=== PATIENT | male | born 1955 | race Caucasian/White ===

== ENCOUNTER → 2018-09-22 | Outpatient (CLI) | payer BC ==
[~2018-09-22] MED LIST: ABAC1TAB13 PO; ASPI81TA50 PO; HYDR-3164 PO; MULT-659 PO; NAPR220C4 PO; PANT20TA2 PO; [UNRECOGNIZED DRUG - CODE] PO
--- NOTE | 2018-09-22 15:15 | EKG ---
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
[2018-09-22 15:53] LABS: BASO % 1 % (0-3); EOS # 0.5 x10^3/uL (0.0-0.7); EOS % 7 % (0-3); HEMATOCRIT 44.2 % (39.0-53.0); HEMOGLOBIN 14.8 g/dL (13.0-17.5); LYMPH % 30 % (24-48); MEAN CORPUSCULAR HEMOGLOBIN 31 pg (25-35); MEAN CORPUSCULAR HGB CONC 34 g/dL (31-37); MEAN CORPUSCULAR VOLUME 93 fL (79-100); MONO # 0.6 x10^3/uL (0.0-1.1); MONO % 8 % (0-9); NEUT # 3.6 x10^3uL (1.8-7.7); NEUT % 54 % (31-73); PLATELET COUNT 191 x10^3/uL (140-400); RED BLOOD COUNT 4.76 x10^6/uL (4.30-5.70); RED CELL DISTRIBUTION WIDTH 14.3 % (11.5-14.5); WHITE BLOOD COUNT 6.7 x10^3/uL (4.0-11.0)
[2018-09-22 16:34] LABS: CALCIUM 9.3 mg/dL (8.5-10.1); CREATININE 1.3 mg/dL (0.7-1.3); GFR 56.1
--- NOTE | 2018-09-27 10:59 | NUR ---
FAXED PRE - OP LABS,EKG'S PRELIMINARY REPORT TO 'S OFFICE AT 1037 AND RECEIVED TRANSMITTAL CONFIRMATION. FAXED EKG'S FINAL REPORT TO 'S OFFICE 09/24/2018 AT 1825 AND RECEIVED TRANSMITTAL CONFIRMATION. EKG'S FINAL REPORT WAS REVIEWED BY ERIC BRANCH RN,ANESTHESIA TEAM 09/27/2018 AT 1015 AND WAS OKAY
== END | disposition home or self-care (01) ==
LOC: SURGPAT 14:06
PROVIDERS: ATTEND Surgery
DX: Z01.818 Encounter for other preprocedural examination (principal); K43.9 Ventral hernia without obstruction or gangrene; Z88.2 Allergy status to sulfonamides
CPT/HCPCS: 36415; 80048; 85025; 93005

== ENCOUNTER → 2018-09-28 | Day surgery (SDC) | payer BC ==
[~2018-09-28] VITALS: Ht 177.8 cm; Wt 86.0 kg
[~2018-09-28] MED LIST changes: +BUPIVACAINE MPF 0.25% 30 ML VIAL. ONE; +BUPIVACAINE-EPI 0.25%-1:200000 MPF 30 ML VIAL. ONE; +DEXAMETHASONE SOD PHOS 20 MG/5 ML VIAL. ONE; +FAMOTIDINE 20 MG/2 ML VIAL ONE; +GLYCOPYRROLATE 1 MG/5 ML VIAL. ONE; +HYDROcodone/APAP 5/325MG 1 TAB TABLET PO ONE; +HYDROmorphone 2 MG/ML VIAL IV PRN; +IV RINGERS,LACTATED 1000ML 1,000 ML IV SCH; +LIDOCAINE 1% PF 2 ML VIAL. ID PRN; +LIDOCAINE 2% PF 5 ML VIAL. ONE; +MIDAZOLAM HCL/PF 2 MG/2 ML VIAL. ONE; +MORPHINE SULFATE 2 MG/ML VIAL. IV PRN; +NEOSTIGMINE METHYLSULFATE 5 MG/5 ML SYRINGE. ONE; +ONDANSETRON PF 4 MG/2 ML VIAL. IV PRN; +ONDANSETRON PF 4 MG/2 ML VIAL. ONE; +PROCHLORPERAZINE 10 MG/2 ML VIAL. IV PRN; +PROPOFOL 20 ML IV ONE; +ROCURONIUM 50 MG/5 ML VIAL. ONE; +SEVOFLURANE 31 TO 60 MINUTES. IH ONE; +ceFAZolin 2GM PREMIX 2 GM/50 ML BAG IV ONE; +ePHEDrine PF IN SALINE 50 MG/10 ML SYRINGE. IV ONE; +fentaNYL PF VIAL 100 MCG/2 ML VIAL IV PRN; +fentaNYL PF VIAL 100 MCG/2 ML VIAL ONE
--- NOTE | 2018-09-28 12:18 | PDOC4 ---
Operative Note Operative Note Date: 09/28/2018 Preoperative diagnosis: Incarcerated epigastric ventral hernia Postoperative diagnosis: Same Procedure: Robotic-assisted laparoscopic ventral hernia repair with mesh Surgeon: Pillo Specimen: None Dictation: Patient is a 63-year-old and was complained of a painful bulge in his epigastric area of his abdomen the procedure of robotic-assisted laparoscopic ventral hernia repair with mesh was explained to the patient in detail all risk benefits were also discussed including bleeding infection injury to intra- abdominal contents possibly necessitating further open operations alternatives to this procedure also discussed with the patient who seemed to understand and gave both verbal and written consent to have the procedure performed. Patient was taken to the operating room placed the supine position general anesthesia was initiated once patient was sleep and intubated his abdomen was prepped and draped usual sterile fashion using ChloraPrep. An area just below the umbilicus was injected with quarter percent Marcaine with epinephrine incision was delfino blade scalpel and a Veress needle was placed within the abdomen creating pneumoperitoneum this point a 5 mm Visiport was placed under direct visualization and the abdomen was inspected was a moderate sized epigastric hernia incarcerated with omentum and a adhesion to the abdominal wall from his previous gastrostomy tube port site. 8mm da Scotty ports placed one in the left mid abdomen one in the left upper abdomen all under direct visualization the 5 mm Visiport was changed out for 8mm da Scotty port that eventually robot was then brought in and docked all port sites using grasper and injure sutures scissors surgeon went to the robotic console with sharp dissection took down the adhesion to the stomach. The incarcerated omentum and fat within the epigastric hernia was reduced a hernia defect was then closed with a running 20V LOC nonabsorbable suture. Ventral light ST mesh was then placed over the hernia defect this was sewn into place with 20V LOC absorbable suture. The intervention robot was undocked all ports removed the port sites were all closed for septic and a Monocryl Mastisol Steri-Strips and island dressings were applied. Patient was awakened and asked bated operating room taken to recovery in stable condition all sponge instrument needle counts listed as correct estimated blood loss 5 mL RAFI JAMES MD Sep 28, 2018 12:18
--- NOTE | 2018-09-28 12:20 | DISCH ---
DISCHARGE INSTRUCTIONS Condition on Discharge Condition on Discharge: Stable Activity After Discharge Activity Instructions for Disc: Avoid exertion Other activity instructions: no lifting more than 20 pounds for 2 weeks Diet after Discharge Diet after Discharge: Regular Wound Incision Care Other wound/incision instructi: a shower in 24 hours Contacting the DRBrando after DC Call your doctor for: If your condition worsens Follow-Up Follow up with: Dr. James in 3 weeks RAFI JAMES MD Sep 28, 2018 12:20
[2018-09-28 13:46] VITALS: BP 117/66
== END ==
LOC: SURG 09:26 → EDUNIT# 11:00
PROVIDERS: ATTEND Surgery
DX: K43.6 Other and unspecified ventral hernia with obstruction, without gangrene (principal); B20 Human immunodeficiency virus [HIV] disease; Z87.891 Personal history of nicotine dependence; Z79.82 Long term (current) use of aspirin; Z79.899 Other long term (current) drug therapy; Z88.2 Allergy status to sulfonamides; Z93.1 Gastrostomy status; Z98.890 Other specified postprocedural states
CPT/HCPCS: 49653; A7015; C1781; J0171; J0696; J1100; J2001; J2250; J2405; J2704; J2710; J3010; J3490; J7120; S2900

== ENCOUNTER 2019-05-09 19:00 | Emergency (ER) | payer BC ==
[~2019-05-09] VITALS: Ht 180.3 cm; Wt 90.0 kg
[~2019-05-09 19:00] MED LIST changes: -BUPIVACAINE MPF 0.25% 30 ML VIAL. ONE; -BUPIVACAINE-EPI 0.25%-1:200000 MPF 30 ML VIAL. ONE; -DEXAMETHASONE SOD PHOS 20 MG/5 ML VIAL. ONE; -FAMOTIDINE 20 MG/2 ML VIAL ONE; -GLYCOPYRROLATE 1 MG/5 ML VIAL. ONE; -HYDROcodone/APAP 5/325MG 1 TAB TABLET PO ONE; -HYDROmorphone 2 MG/ML VIAL IV PRN; -IV RINGERS,LACTATED 1000ML 1,000 ML IV SCH; -LIDOCAINE 1% PF 2 ML VIAL. ID PRN; -LIDOCAINE 2% PF 5 ML VIAL. ONE; -MIDAZOLAM HCL/PF 2 MG/2 ML VIAL. ONE; -MORPHINE SULFATE 2 MG/ML VIAL. IV PRN; -NEOSTIGMINE METHYLSULFATE 5 MG/5 ML SYRINGE. ONE; -ONDANSETRON PF 4 MG/2 ML VIAL. IV PRN; -ONDANSETRON PF 4 MG/2 ML VIAL. ONE; -PROCHLORPERAZINE 10 MG/2 ML VIAL. IV PRN; -PROPOFOL 20 ML IV ONE; -ROCURONIUM 50 MG/5 ML VIAL. ONE; -SEVOFLURANE 31 TO 60 MINUTES. IH ONE; -ceFAZolin 2GM PREMIX 2 GM/50 ML BAG IV ONE; -ePHEDrine PF IN SALINE 50 MG/10 ML SYRINGE. IV ONE; -fentaNYL PF VIAL 100 MCG/2 ML VIAL IV PRN; -fentaNYL PF VIAL 100 MCG/2 ML VIAL ONE
[2019-05-09] MEDS ORDERED: HYDROcodone/APAP 10/325 1 TAB TABLET PO ONE (19:45)
--- NOTE | 2019-05-09 19:47 | PHYS DOC ---
Past Medical History Past Medical History: HIV Past Surgical History: Appendectomy Additional Past Surgical Histo: hernia, brain, lung, Alcohol Use: Occasionally Adult General Chief Complaint Chief Complaint: SYNCOPE HPI HPI Patient is a 64 year old IV positive male who presents with accidental fall from standing. Patient states he is crouched over his bathtub clipping his toenails and then had a syncopal episode upon walking down the hallway just prior to arrival. Patient states he felt dizzy or lightheaded prior to episode denies chest pain palpitations shortness of breath. Patient did hit his head with a superficial abrasion noted on his frontal scalp and printed abrasion noted in his right chest wall. Patient not on anticoagulation therapy denies cardiac history including arrhythmia. No prior syncopal episodes. Reports mild headache and chest wall pain. No other acute symptoms or complaints. Review of Systems Review of Systems ROS as per HPI All other systems were reviewed and found to be within normal limits, except as documented in this note. Current Medications Current Medications Current Medications Medications (Trade) Dose Ordered Sig/Vu Start Time Stop Time Status Last Admin Dose Admin Acetaminophen/ Hydrocodone Bitart (Lortab 10/325) 1 tab 1X ONCE 05/09/19 19:45 05/09/19 19:46 DC 05/09/19 20:39 1 TAB Allergies Allergies Allergies Coded Allergies Type Severity Reaction Last Updated Verified Sulfa (Sulfonamide Antibiotics) Allergy Severe Anaphylaxis 09/28/18 Yes Physical Exam Physical Exam Constitutional: Well developed, well nourished, no acute distress, non-toxic appearance. [] HENT: Normocephalic, superficial abrasions, frontal scalp, bilateral external ears normal, oropharynx moist, no oral exudates, nose normal. [] Eyes: PERRLA, EOMI, conjunctiva normal. [] Neck: Normal range of motion, no tenderness. [] Cardiovascular:Heart rate regular rhythm, no murmur [] Lungs & Thorax: Bilateral breath sounds clear to auscultation, right chest wall pain/tenderness to palpation, linear imprint abrasion over breast, no chest wall crepitance or subcutaneous emphysema [] Abdomen: Bowel sounds normal, soft, no tenderness. [] Skin: Warm, dry. [] Back: No tenderness. [] Extremities: No tenderness, no edema. [] Neurologic: Alert and oriented X 3, CN 2-12, grossly intact, normal motor function, normal sensory function, no focal deficits noted. [] Psychologic: Affect normal, judgement normal, mood normal. [] Current Patient Data Vital Signs Vital Signs Date Time Temp Pulse Resp B/P (MAP) Pulse Ox O2 Delivery O2 Flow Rate FiO2 05/09/19 21:34 80 20 127/70 (89) 96 Room Air 05/09/19 19:11 98.4 98.4 Lab Values Laboratory Tests Test 05/09/19 20:30 White Blood Count 14.2 x10^3/uL (4.0-11.0) H Red Blood Count 5.08 x10^6/uL (4.30-5.70) Hemoglobin 15.3 g/dL (13.0-17.5) Hematocrit 45.5 % (39.0-53.0) Mean Corpuscular Volume 90 fL (79-100) Mean Corpuscular Hemoglobin 30 pg (25-35) Mean Corpuscular Hemoglobin Concent 34 g/dL (31-37) Red Cell Distribution Width 13.8 % (11.5-14.5) Platelet Count 201 x10^3/uL (140-400) Neutrophils (%) (Auto) 84 % (31-73) H Lymphocytes (%) (Auto) 7 % (24-48) L Monocytes (%) (Auto) 6 % (0-9) Eosinophils (%) (Auto) 2 % (0-3) Basophils (%) (Auto) 1 % (0-3) Neutrophils # (Auto) 11.9 x10^3/uL (1.8-7.7) H Lymphocytes # (Auto) 1.0 x10^3/uL (1.0-4.8) Monocytes # (Auto) 0.9 x10^3/uL (0.0-1.1) Eosinophils # (Auto) 0.3 x10^3/uL (0.0-0.7) Basophils # (Auto) 0.1 x10^3/uL (0.0-0.2) Sodium Level 139 mmol/L (136-145) Potassium Level 4.2 mmol/L (3.5-5.1) Chloride Level 103 mmol/L (98-107) Carbon Dioxide Level 23 mmol/L (21-32) Anion Gap 13 (6-14) Blood Urea Nitrogen 23 mg/dL (8-26) Creatinine 1.3 mg/dL (0.7-1.3) Estimated GFR (Cockcroft-Gault) 55.9 BUN/Creatinine Ratio 18 (6-20) Glucose Level 147 mg/dL (70-99) H Calcium Level 8.8 mg/dL (8.5-10.1) Magnesium Level 2.0 mg/dL (1.8-2.4) Total Bilirubin 0.7 mg/dL (0.2-1.0) Aspartate Amino Transferase (AST) 24 U/L (15-37) Alanine Aminotransferase (ALT) 29 U/L (16-63) Alkaline Phosphatase 117 U/L (46-116) H Total Protein 7.5 g/dL (6.4-8.2) Albumin 3.8 g/dL (3.4-5.0) Albumin/Globulin Ratio 1.0 (1.0-1.7) Laboratory Tests 05/09/19 20:30 Laboratory Tests 05/09/19 20:30 EKG EKG EKG: reviewed[] Radiology/Procedures Radiology/Procedures [Right rib series: No obvious displaced fracture or pneumothorax per radiology report.] Course & Med Decision Making Course & Med Decision Making Pertinent Labs and Imaging studies reviewed. (See chart for details) [Orthostatic syncope with chest wall contusion without pneumothorax or obvious displaced rib fracture on chest x-ray. Pain addressed. Vital signs stable. Patient ambulates with steady gait. We'll treat supportively with PCP follow-up. Return precautions reviewed. Patient verbalizes understanding and agreement discharge instructions prior to departure] Dragon Disclaimer Dragon Disclaimer This electronic medical record was generated, in whole or in part, using a voice recognition dictation system. Departure Departure Impression: Primary Impression: Contusion of rib on right side Disposition: HOME, SELF-CARE Condition: IMPROVED Referrals: JOAQUIN GONZALEZ MD (PCP) Scripts Hydrocodone Bit/Acetaminophen (HYDROCODONE-APAP 5-300) 1 Each Tablet 1 TAB PO PRN BID PRN for pain MDD 2 Tablet(s) for 15 Days, #30 TAB 0 Refills Prov: DAWOOD ABRAHAM DO 05/09/19 DAWOOD ABRAHAM DO May 09, 2019 19:47
[2019-05-09 20:38] LABS: BASO # 0.1 x10^3/uL (0.0-0.2); BASO % 1 % (0-3); EOS # 0.3 x10^3/uL (0.0-0.7); EOS % 2 % (0-3); HEMATOCRIT 45.5 % (39.0-53.0); HEMOGLOBIN 15.3 g/dL (13.0-17.5); LYMPH % 7 % (24-48); MEAN CORPUSCULAR HEMOGLOBIN 30 pg (25-35); MEAN CORPUSCULAR HGB CONC 34 g/dL (31-37); MEAN CORPUSCULAR VOLUME 90 fL (79-100); MONO # 0.9 x10^3/uL (0.0-1.1); MONO % 6 % (0-9); NEUT # 11.9 x10^3/uL (1.8-7.7); NEUT % 84 % (31-73); PLATELET COUNT 201 x10^3/uL (140-400); RED BLOOD COUNT 5.08 x10^6/uL (4.30-5.70); RED CELL DISTRIBUTION WIDTH 13.8 % (11.5-14.5); WHITE BLOOD COUNT 14.2 x10^3/uL (4.0-11.0)
[2019-05-09 20:47] LABS: CALCIUM 8.8 mg/dL (8.5-10.1); CREATININE 1.3 mg/dL (0.7-1.3); GFR 55.9; POTASSIUM 4.2 mmol/L (3.5-5.1)
[2019-05-09 20:53] LABS: ALBUMIN 3.8 g/dL (3.4-5.0); TOTAL BILIRUBIN 0.7 mg/dL (0.2-1.0); TOTAL PROTEIN 7.5 g/dL (6.4-8.2)
--- NOTE | 2019-05-09 21:28 | RAD ---
Exam: Right RIBS with PA chest INDICATION: Chest wall injury TECHNIQUE: Frontal view of the chest with frontal and oblique views of the right ribs Comparisons: None FINDINGS: The cardiomediastinal silhouette and pulmonary vessels are within normal limits. The lung and pleural spaces are clear. No displaced rib fractures. IMPRESSION: 1. No acute cardiopulmonary process. 2. No displaced rib fractures. Electronically signed by: Francia Liu MD (05/09/2019 9:25 PM) [facility]
[2019-05-09 21:34] VITALS: BP 127/70
[2019-05-09] MEDS ORDERED: HYDR-2163 PO (21:45)
--- NOTE | 2019-05-10 05:35 | EKG ---
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
== END 2019-05-09 21:55 | disposition home or self-care (01) ==
LOC: ER 19:00
DX: S20.211A Contusion of right front wall of thorax, initial encounter (principal); R55 Syncope and collapse; R42 Dizziness and giddiness; S00.01XA Abrasion of scalp, initial encounter; Z21 Asymptomatic human immunodeficiency virus [HIV] infection status; Z90.89 Acquired absence of other organs; Z98.890 Other specified postprocedural states; Z88.2 Allergy status to sulfonamides; W18.39XA Other fall on same level, initial encounter; Y93.89 Activity, other specified; Y92.89 Other specified places as the place of occurrence of the external cause; Y99.8 Other external cause status
CPT/HCPCS: 36415; 71101; 80053; 83735; 85025; 93005; 99285

== ENCOUNTER 2019-11-11 16:12 | Inpatient (IN) | payer BC ==
[~2019-11-11] VITALS: Ht 177.8 cm; Wt 77.9 kg
[~2019-11-11 16:12] MED LIST changes: +HYDR-2163 PO
[2019-11-11] MEDS ORDERED: VANCOMYCIN 2 GM in IV NORMAL SALINE 500ML BAG 500 ML IV ONE (18:00)
--- NOTE | 2019-11-11 18:43 | RAD ---
Three-view right elbow dated 11/11/2019. No comparison available. Clinical data indication: Pain and swelling FINDINGS: 3 views of right elbow show normal bony alignment. No displaced fracture. No acute osseous or articular abnormality. No fat pad elevation to suggest joint effusion. There is mild soft tissue swelling. IMPRESSION: No acute bony abnormality. Electronically signed by: Navdeep Doshi MD (11/11/2019 6:40 PM) [facility]
[2019-11-11] MEDS ORDERED: MORPHINE SULFATE 4 MG/ML VIAL. IV PRN (19:15)
[2019-11-11] MEDS ORDERED: ONDANSETRON PF 4 MG/2 ML VIAL. IV PRN (19:15)
--- NOTE | 2019-11-11 19:19 | PHYS DOC ---
Past Medical History Past Medical History: HIV Additional Past Medical Histor: Toxoplasmosis Past Surgical History: Appendectomy, Other Additional Past Surgical Histo: hernia, brain, lung, Smoking Status: Former Smoker Alcohol Use: Occasionally General Adult EDM: Chief Complaint: ELBOW PROBLEM HPI: HPI: Patient is a 64 year old male, accompanied by a friend, who presents to the emergency department with complaints of right elbow redness, warmth, and swelling. Patient reports that he initially injured his elbow a week ago when he fell out of a chair. He states that there is a small abrasion to his elbow but denies any purulent drainage or warmth. He reports that 2 days ago he noticed that his elbow became red, more swollen, and tender. He denies any bleeding or drainage from the scabbed abrasion site. He reports that last night he had a fever of 101 degrees. He denies any cough, shortness of breath, numbness, tingling, or weakness. He denies any abdominal pain, nausea, vomiting, diarrhea, headaches, or sore throat. Patient states that he had a colonoscopy this morning and that he had a negative COVID test this week. Currently rates the pain 6 out of 10 on the pain scale, he denies any alleviating factors, or radiation of the pain. He states that the pain increases with palpation and movement. Review of Systems: Review of Systems: Constitutional: See HPI Eyes: Denies change in visual acuity. [] HENT: Denies nasal congestion or sore throat. [] Respiratory: Denies cough or shortness of breath. [] Cardiovascular: Denies chest pain or edema. [] GI: Denies abdominal pain, nausea, vomiting, or diarrhea. [] Musculoskeletal: See HPI Integument: Denies rash. [] Neurologic: Denies headache, focal weakness or sensory changes. [] Lymphatic: Denies swollen glands. [] Psychiatric: Denies depression or anxiety. [] Heart Score: Risk Factors: Risk Factors: DM, Current or recent (<one month) smoker, HTN, HLP, family history of CAD, obesity. Risk Scores: Score 0 - 3: 2.5% MACE over next 6 weeks - Discharge Home Score 4 - 6: 20.3% MACE over next 6 weeks - Admit for Clinical Observation Score 7 - 10: 72.7% MACE over next 6 weeks - Early Invasive Strategies Current Medications: Current Medications Medications (Trade) Dose Ordered Sig/Vu Start Time Stop Time Status Last Admin Dose Admin Vancomycin HCl (Vanco Per Pharmacy) 1 each PRN DAILY PRN 11/11/19 18:00 Vancomycin HCl 2 gm/Sodium Chloride 500 ml @ 250 mls/hr 1X ONCE 11/11/19 18:00 11/11/19 19:59 Allergies: Allergies: Allergies Coded Allergies Type Severity Reaction Last Updated Verified Sulfa (Sulfonamide Antibiotics) Allergy Severe Anaphylaxis 09/28/18 Yes Physical Exam: PE: Constitutional: Well developed, well nourished, no acute distress, non-toxic appearance. [] HENT: Normocephalic, atraumatic, bilateral external ears normal, nose normal. [] Eyes: PERRLA, EOMI, conjunctiva normal, no discharge. [] Neck: Normal range of motion, no stridor. [] Cardiovascular:Heart rate regular rhythm Lungs & Thorax: Respirations even and unlabored, no retractions, no respiratory distress Skin: Warm, dry; erythema, 1+ swelling noted to lateral aspect of right elbow, scabbed area of the right elbow noted without any drainage or bleeding. Extremities: Right elbow: Lateral tenderness to palpation with 2+ lateral edema, warmth, and erythema, no cyanosis, ROM intact Neurologic: Alert and oriented X 3, no focal deficits noted. [] Psychologic: Affect normal, judgement normal, mood normal. [] Current Patient Data: Vital Signs: Vital Signs Date Time Temp Pulse Resp B/P (MAP) Pulse Ox O2 Delivery O2 Flow Rate FiO2 11/11/19 17:05 98.5 90 20 121/81 (94) 98 Room Air 98.5 EKG: EKG: [] Radiology/Procedures: Radiology/Procedures: PROCEDURE: ELBOW RIGHT 3V Three-view right elbow dated 11/11/2019. No comparison available. Clinical data indication: Pain and swelling FINDINGS: 3 views of right elbow show normal bony alignment. No displaced fracture. No acute osseous or articular abnormality. No fat pad elevation to suggest joint effusion. There is mild soft tissue swelling. IMPRESSION: No acute bony abnormality. [] Course & Med Decision Making: Course & Med Decision Making Pertinent Labs and Imaging studies reviewed. (See chart for details) 64-year-old male presents to the emergency department with complaints of right elbow swelling, erythema, and pain Work-up includes labs and x-ray. X-ray reveals no acute abnormality. CBC revealed a white blood cell count of 12.2, no bandemia; CMP revealed a total bilirubin of 1.3, alk phos of 129, and C-reactive protein of 140 otherwise unremarkable, patient's lactic acid was 1.3; UA is unremarkable; patient's COVID swab is negative [id number]-spoke with Dr. Mcleod and advised of need for consult for possible septic joint, right elbow cellulitis, versus bursitis. 1911- Spoke with Dr. Bauer who is the admitting physician, and care was assumed following discussion of patient. Will admit patient for right elbow cellulitis, right elbow bursitis. Advised that blood cultures x2 have been drawn, labs are pending, x-ray of right elbow was negative. Advised that I had already spoke with Dr. Mcleod about the patient. Will put in for orthopedic consult. Patient's vital signs stable. Patient remains afebrile, appears nontoxic, respirations even and unlabored. Patient will be admitted to the med/surg floor. Patient's case and plan of care also discussed with Dr. Dunn [] Sakina Disclaimer: Sakina Disclaimer: This electronic medical record was generated, in whole or in part, using a voice recognition dictation system. Departure Departure Impression: Primary Impression: Cellulitis of right elbow Additional Impression: Bursitis of right elbow Qualified Codes: M70.21 - Olecranon bursitis, right elbow Disposition: ADMITTED INPATIENT Admitting Physician: SAMANTHA (caleb) Condition: STABLE Referrals: JOAQUIN GONZALEZ MD (PCP) Justicifation of Admission Dx: Justifications for Admission: Justification of Admission Dx: Yes Cellulitis: Cellulitis AILYN FOWLER IMMIGRATION SPECIALIST Nov 11, 2019 19:19
--- NOTE | 2019-11-11 19:29 | PDOC2 ---
CONSULT Date of Consult Date of Consult DATE: 11/11/19 TIME: 19:24 Reason for Consult Reason for Consult: Right elbow pain and swelling and redness Identification/Chief Complaint Chief Complaint Right elbow swelling redness and pain, fever. Source Source: Chart review, Patient History of Present Illness Reason for Visit: Mr. 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 A few days ago the elbow swelled, then got more red and more painful, and last night he ran a fever. Increased pain if he moves the elbow too much. He has had several other medical issues recently, and he had a colonoscopy katrina ier today. He is getting treatment for Murillo's disease, skin cancer. He was diagnosed with HIV in 1986 and is on treatment for that. He had a COVID test yesterday for preparation for the colonoscopy today and he was COVID negative. Past Medical History Past Medical History HIV positive, diagnosed in 1986. Murillo's disease skin cancer. 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 1993 Past Surgical History: Appendectomy Family History Family History: Cancer, Coronary Artery Disease Social History Social History He does not smoke but did so remotely. He lives with his . 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 Quit Lives: with Family Current Problem List Problem List Problems Medical Problems: (1) Bursitis of right elbow Status: Acute (2) Cellulitis of right elbow Status: Acute Current Medications Current Medications Current Medications Vancomycin HCl (Vanco Per Pharmacy) 1 each PRN DAILY PRN MC SEE COMMENTS; Start 11/11/19 at 18:00 Vancomycin HCl 2 gm/Sodium Chloride 500 ml @ 250 mls/hr 1X ONCE IV ; Start 11/11/19 at 18:00; Stop 11/11/19 at 19:59 Ondansetron HCl (Zofran) 4 mg PRN Q8HRS PRN IV NAUSEA/VOMITING; Start 11/11/19 at 19:15; Stop 11/12/19 at 19:14 Morphine Sulfate (Morphine Sulfate) 4 mg PRN Q2HR PRN IV PAIN; Start 11/11/19 at 19:15; Stop 11/12/19 at 19:14 Active Scripts Active Hydrocodone-Apap 5-300 (Hydrocodone Bit/Acetaminophen) 1 Each Tablet 1 Tab PO PRN BID PRN MDD 2 Tablet(s) 15 Days Reported [place] 5-325 Tablet (Acetaminophen/Hydrocodone Bitart) 1 Each Tablet 1-2 Tab PO Q4HRS Atovaquone 750 Mg/5 Ml Oral.susp 750 Mg PO DAILY Centrum Men's Tablet (Multivits,Ca,Min/Iron/FA/Lycop) 1 Each Tablet 1 Tab PO DAILY Aleve (Naproxen Sodium) 220 Mg Capsule 220 Mg PO BID PRN Aspir-Low (Aspirin) 81 Mg Tablet.dr 1 Tab PO DAILY Protonix (Pantoprazole Sodium) 20 Mg Tablet.dr 40 Mg PO DAILY Triumeq Tablet (Abacavir/Dolutegravir/Lamivudi) 1 Each Tablet 1 Tab PO DAILY Allergies Allergies: Coded Allergies: Sulfa (Sulfonamide Antibiotics) (Verified Allergy, Severe, Anaphylaxis, 09/28/18) ROS Review of System Review of systems was negative other than as mentioned above the recent colonoscopy, and the Murillo's disease. He denied headaches, chest pain, shortness of breath, hematuria, hemoptysis, cough, blood in his stools, nausea, vomiting, diarrhea, constipation, seizures, or other issues. His regular medical doctor is Shy Reyes. Physical Exam General: Alert, Cooperative HEENT: Other (possible left eyelid droop. Atraumatic.) Lungs: Normal air movement Heart: Regular rate Abdomen: Soft Extremities: Other (The gross alignment of the right elbow is normal except for posterior bursal fluid filled sac. Elbow range of motion is 10 to 90 degrees. Elbow strength is normal. The bursa is prominent. The bursa is erythematous, warm, tender and fluctuant. There are some minor abrasions but the skin is otherwise intact. There is no drainage. Skin, pulses and sensation are otherwise normal around the elbow) Skin: Other (erythema elbow with small abrasions.) Neuro: Normal speech, Sensation intact Psych/Mental Status: Mood NL Vitals VITALS Vital Signs Date Time Temp Pulse Resp B/P (MAP) Pulse Ox O2 Delivery O2 Flow Rate FiO2 11/11/19 17:05 98.5 90 20 121/81 (94) 98 Room Air 98.5 Images Images Report reviewed images independently reviewed. There is slight swelling radiographically, it is much more visible clinically. [facility] [address] [place] [address] IMAGING REPORT Signed PATIENT: CHACORTA MCCLURE ACCOUNT: [id number] : 1955 LOCATION: ER AGE: 64 SEX: M EXAM STATUS: PRE ER ORD. PHYSICIAN: AILYN FOWLER APRN REASON: R ELBOW PAIN AND SWELLING PROCEDURE: ELBOW RIGHT 3V Three-view right elbow dated 11/11/2019. No comparison available. Clinical data indication: Pain and swelling FINDINGS: 3 views of right elbow show normal bony alignment. No displaced fracture. No acute osseous or articular abnormality. No fat pad elevation to suggest joint effusion. There is mild soft tissue swelling. IMPRESSION: No acute bony abnormality. Electronically signed by: Navdeep Doshi MD (11/11/2019 6:40 PM) [facility] DICTATED and SIGNED BY: NAVDEEP DOSHI MD DATE: 11/11/19 1840 Assessment/Plan Assessment/Plan I spoke to him about the risks benefits and alternatives of elbow incision with olecranon bursectomy.. We discussed the risks of scarring, ongoing infection, nerve injury, need for further surgeries or other potential surgical or anesthetic complications. I recommended surgery tomorrow morning. He agrees with that plan for surgery tomorrow. All of his questions about surgery were answered. DELILAH REECE MD Nov 11, 2019 19:29
[2019-11-11 19:43] LABS: BASO # 0.1 x10^3/uL (0.0-0.2); BASO % 1 % (0-3); EOS # 0.8 x10^3/uL (0.0-0.7); EOS % 6 % (0-3); HEMATOCRIT 46.7 % (39.0-53.0); HEMOGLOBIN 15.6 g/dL (13.0-17.5); LYMPH # 2.7 x10^3/uL (1.0-4.8); LYMPH % 22 % (24-48); MEAN CORPUSCULAR HEMOGLOBIN 30 pg (25-35); MEAN CORPUSCULAR HGB CONC 33 g/dL (31-37); MEAN CORPUSCULAR VOLUME 91 fL (79-100); MONO # 1.2 x10^3/uL (0.0-1.1); MONO % 10 % (0-9); NEUT # 7.5 x10^3/uL (1.8-7.7); NEUT % 62 % (31-73); PLATELET COUNT 203 x10^3/uL (140-400); RED BLOOD COUNT 5.14 x10^6/uL (4.30-5.70); RED CELL DISTRIBUTION WIDTH 13.8 % (11.5-14.5); WHITE BLOOD COUNT 12.2 x10^3/uL (4.0-11.0)
[2019-11-11 19:53] LABS: CALCIUM 9.1 mg/dL (8.5-10.1); CREATININE 1.3 mg/dL (0.7-1.3); GFR 55.9
[2019-11-11 19:59] LABS: ALBUMIN 3.9 g/dL (3.4-5.0); TOTAL BILIRUBIN 1.3 mg/dL (0.2-1.0); TOTAL PROTEIN 7.7 g/dL (6.4-8.2)
[2019-11-11] MEDS: VANCOMYCIN PER PHARMACY MC PRN (20:25)
--- NOTE | 2019-11-11 20:40 | NUR ---
Pharmacy Vancomycin Dosing Note S:Consulted to monitor and dose vancomycin started 11/11/19. O:CHACORTA CASH is a 64 year old M with Cellulitis . Height: 5 feet, 10 inches Weight: 77.9 kg [place] Body Weight: 73.00 Adjusted Body Weight: 74.96 Dosing Weight: Actual Other Antibiotics: LABS: Last BUN: Last Creatinine: 1.3 Creatinine Clearance: 65 mL/min Last WBC: 12.2 Last Procalcitonin: Tmax (past 24 hours): 98.5 Microbiology: I/O: Drug Levels: Last level: on at Last dose given 11/11/19 at 1948 Vancomycin Dosing: Loading Dose: 2000 mg x1 Dosing Weight: Actual Target Trough: 10-20 A: Based on: WEIGHT AND RENAL FUNCTION, 2GM VANCOMYCIN BOLUS GIVEN, P: 1. Begin Vancomycin 1000 mg IV q12h 2. Follow up Trough level on 11/13/19 at 0730 3. Pharmacy will continue to monitor, follow and adjust therapy as needed. ALINE RODRIGUEZ RPH, 11/11/19 539
[2019-11-11 21:58] VITALS: BP 117/71
--- NOTE | 2019-11-11 22:00 | NUR ---
Patient admitted from ER to room 408 per wheelchair. Admitting diagnosis: Right elbow cellulitis and bursitis. Patient states that 10 days ago, he fell and hit his elbow on a metal cabinet. He stated he cleaned the area and applied antibiotic ointment and that the area scabbed over. 2 days ago his elbow area became reddened, swollen and painful. Patient schedule for surgery in the morning per Dr. Mcleod. Patient is alert and oriented X4. Patient lives at home with his . Patient is allergic to Sulfa. Patient is in no acute distress at this time. Will continue to monitor
[2019-11-11 23:48] LABS: BILIRUBIN,URINE SMALL (NEG); CLARITY,URINE CLEAR; COLOR,URINE AMBER; NITRITE,URINE NEGATIVE (NEG); PH,URINE 5.5 (<5.0-8.0); PROTEIN,URINE NEGATIVE (NEG-TRACE); UROBILINOGEN,URINE 0.2 mg/dL (0.2 mg/dL)
[2019-11-12] VITALS (12 sets, daily range): BP systolic 94–142; BP diastolic 65–80
[2019-11-12 00:01] LABS: BACTERIA,URINE FEW /HPF (0-FEW); SQUAMOUS EPITHELIAL CELL,UR FEW /LPF
[2019-11-12] MEDS ORDERED: BUPIVACAINE-EPI 0.25%-1:200000 MPF 30 ML VIAL. ONE (07:32)
--- NOTE | 2019-11-12 07:35 | PDOC1 ---
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 A few days ago the elbow swelled, then got more red and more painful, and last night he ran a fever. Increased pain if he moves the elbow too much. He has had several other medical issues recently, and he had a colonoscopy 11/11/2019. He is getting treatment for Murillo's disease, skin cancer. He was diagnosed with HIV in 1986 and is on treatment for that. He had a COVID test yesterday for preparation for the colonoscopy and he was COVID negative. XR reviewed with no right elbow fracture. To OR today. 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) Past Surgical History Past Surgical History: Appendectomy Family History Family History: Cancer, Coronary Artery Disease Social History Smoke: No ALCOHOL: none Drugs: None Current Problem List Problem List Problems Medical Problems: (1) Bursitis of right elbow Status: Acute (2) Cellulitis of right elbow Status: Acute Current Medications Current Medications Current Medications Vancomycin HCl (Vanco Per Pharmacy) 1 each PRN DAILY PRN MC SEE COMMENTS Last administered on 11/11/19at 20:25; Start 11/11/19 at 18:00 Vancomycin HCl 2 gm/Sodium Chloride 500 ml @ 250 mls/hr 1X ONCE IV Last administered on 11/11/19at 19:48; Start 11/11/19 at 18:00; Stop 11/11/19 at 19:59; Status DC Ondansetron HCl (Zofran) 4 mg PRN Q8HRS PRN IV NAUSEA/VOMITING; Start 11/11/19 at 19:15; Stop 11/12/19 at 19:14 Morphine Sulfate (Morphine Sulfate) 4 mg PRN Q2HR PRN IV PAIN; Start 11/11/19 at 19:15; Stop 11/12/19 at 19:14 Vancomycin HCl 1 gm/Sodium Chloride 250 ml @ 250 mls/hr Q12H IV ; Start 11/12/19 at 08:00 Vancomycin HCl (Vancomycin Trough Level) 1 each 1X ONCE MC ; Start 11/13/19 at 07:30; Stop 11/13/19 at 07:31 Active Scripts Active Hydrocodone-Apap 5-300 (Hydrocodone Bit/Acetaminophen) 1 Each Tablet 1 Tab PO PRN BID PRN MDD 2 Tablet(s) 15 Days Reported Graham 5-325 Tablet (Acetaminophen/Hydrocodone Bitart) 1 Each Tablet 1-2 Tab PO Q4HRS Atovaquone 750 Mg/5 Ml Oral.susp 750 Mg PO DAILY Centrum Men's Tablet (Multivits,Ca,Min/Iron/FA/Lycop) 1 Each Tablet 1 Tab PO DAILY Aleve (Naproxen Sodium) 220 Mg Capsule 220 Mg PO BID PRN Aspir-Low (Aspirin) 81 Mg Tablet.dr 1 Tab PO DAILY Protonix (Pantoprazole Sodium) 20 Mg Tablet.dr 40 Mg PO DAILY Triumeq Tablet (Abacavir/Dolutegravir/Lamivudi) 1 Each Tablet 1 Tab PO DAILY Allergies Allergies: Coded Allergies: Sulfa (Sulfonamide Antibiotics) (Verified Allergy, Severe, Anaphylaxis, 11/12/19) ROS General: No: Chills, Night Sweats, Fatigue, Malaise, Appetite, Other PSYCHOLOGICAL ROS: No: Anxiety, Behavioral Disorder, Concentration difficultie, Decreased libido, Depression, Disorientation, Hallucinations, Hostility, Irritablity, Memory difficulties, Mood Swings, Obsessive thoughts, Physical abuse, Sexual abuse, Sleep disturbances, Suicidal ideation, Other Eyes: No Blurry vision, No Decreased vision, No Double vision, No Dry eyes, No Excessive tearing, No Eye Pain, No Itchy Eyes, No Loss of vision, No Photophobia, No Scotomata, No Uses contacts, No Uses glasses, No Other HEENT: No: Heacaches, Visual Changes, Hearing change, Nasal congestion, Nasal discharge, Oral lesions, Sinus pain, Sore Throat, Epistaxis, Sneezing, Snoring, Tinnitus, Vertigo, Vocal changes, Other ALLERGY AND IMMUNOLOGY: No: Hives, Insect Bite Sensitivity, Itchy/Watery Eyes, Nasal Congestion, Post Nasal Drip, Seasonal Allergies, Other Hematological and Lymphatic: No: Bleeding Problems, Blood Clots, Blood Transfusions, Brusing, Night Sweats, Pallor, Swollen Lymph Nodes, Other ENDOCRINE: No: Breast Changes, Galactorrhea, Hair Pattern Changes, Hot Flashes, Malaise/lethargy, Mood Swings, Palpitations, Polydipsia/polyuria, Skin Changes, Temperature Intolerance, Unexpected Weight Changes, Other Breast: No New/Changing Breast Lumps, No Nipple changes, No Nipple discharge, No Other Respiratory: No: Cough, Hemoptysis, Orthopnea, Pleuritic Pain, Shortness of breath, SOB with excertion, Sputum Changes, Stridor, Tachypnea, Wheezing, Other Cardiovascular: No Chest Pain, No Palpitations, No Orthopnea, No Paroxysmal Noc. Dyspnea, No Edema, No Lt Headedness, No Other Gastrointestinal: No Nausea, No Vomiting, No Abdominal Pain, No Diarrhea, No Constipation, No Melena, No Hematochezia, No Other Genitourinary: No Dysuria, No Frequency, No Incontinence, No Hematuria, No Retention, No Discharge, No Urgency, No Pain, No Flank Pain, No Other, No , No , No , No , No , No , No Musculoskeletal: No Gait Disturbance, No Joint Pain, No Joint Stiffness, No Joint Swelling, No Muscle Pain, No Muscular Weakness, No Pain In:, No Swelling In:, No Other Neurological: No Behavorial Changes, No Bowel/Bladder ControlChng, No Confusion, No Dizziness, No Gait Disturbance, No Headaches, No Impaired Coord/balance, No Memory Loss, No Numbness/Tingling, No Seizures, No Speech Problems, No Tremors, No Visual Changes, No Weakness, No Other Skin: No Dry Skin, No Eczema, No Hair Changes, No Lumps, No Mole Changes, No Mottling, No Nail Changes, No Pruritus, No Rash, No Skin Lesion Changes, No Other, No Acne Physical Exam General: Alert, Oriented X3, Cooperative, No acute distress HEENT: Atraumatic, PERRLA, EOMI, Mucous membr. moist/pink Lungs: Clear to auscultation, Normal air movement Heart: S1S2, RRR, no thrills, no rubs, no gallops, no murmurs Abdomen: Normal bowel sounds, Soft, No tenderness, No hepatosplenomegaly, No masses Rectal Exam: not examined Extremities: No clubbing, No cyanosis, No edema, Normal pulses, No tenderness/swelling Skin: No breakdown, No significant lesion Neuro: Normal gait, Normal speech, Strength at 5/5 X4 ext, Normal tone, Sensation intact, Cranial nerves 3-12 NL, Reflexes 2+ Psych/Mental Status: Mental status NL, Mood NL Vitals Vitals Vital Signs Date Time Temp Pulse Resp B/P (MAP) Pulse Ox O2 Delivery O2 Flow Rate FiO2 11/12/19 07:29 Room Air 11/12/19 03:30 98.1 78 17 113/68 (83) 94 98.1 Labs Labs Laboratory Tests Test 11/11/19 19:20 11/11/19 21:32 11/11/19 22:30 White Blood Count 12.2 x10^3/uL (4.0-11.0) Red Blood Count 5.14 x10^6/uL (4.30-5.70) Hemoglobin 15.6 g/dL (13.0-17.5) Hematocrit 46.7 % (39.0-53.0) Mean Corpuscular Volume 91 fL (79-100) Mean Corpuscular Hemoglobin 30 pg (25-35) Mean Corpuscular Hemoglobin Concent 33 g/dL (31-37) Red Cell Distribution Width 13.8 % (11.5-14.5) Platelet Count 203 x10^3/uL (140-400) Neutrophils (%) (Auto) 62 % (31-73) Lymphocytes (%) (Auto) 22 % (24-48) Monocytes (%) (Auto) 10 % (0-9) Eosinophils (%) (Auto) 6 % (0-3) Basophils (%) (Auto) 1 % (0-3) Neutrophils # (Auto) 7.5 x10^3/uL (1.8-7.7) Lymphocytes # (Auto) 2.7 x10^3/uL (1.0-4.8) Monocytes # (Auto) 1.2 x10^3/uL (0.0-1.1) Eosinophils # (Auto) 0.8 x10^3/uL (0.0-0.7) Basophils # (Auto) 0.1 x10^3/uL (0.0-0.2) Sodium Level 139 mmol/L (136-145) Potassium Level 4.0 mmol/L (3.5-5.1) Chloride Level 102 mmol/L (98-107) Carbon Dioxide Level 27 mmol/L (21-32) Anion Gap 10 (6-14) Blood Urea Nitrogen 21 mg/dL (8-26) Creatinine 1.3 mg/dL (0.7-1.3) Estimated GFR (Cockcroft-Gault) 55.9 BUN/Creatinine Ratio 16 (6-20) Glucose Level 77 mg/dL (70-99) Lactic Acid Level 1.3 mmol/L (0.4-2.0) Calcium Level 9.1 mg/dL (8.5-10.1) Total Bilirubin 1.3 mg/dL (0.2-1.0) Aspartate Amino Transf (AST/SGOT) 20 U/L (15-37) Alanine Aminotransferase (ALT/SGPT) 41 U/L (16-63) Alkaline Phosphatase 129 U/L (46-116) C-Reactive Protein, Quantitative 140.0 mg/L (0-3.3) Total Protein 7.7 g/dL (6.4-8.2) Albumin 3.9 g/dL (3.4-5.0) Albumin/Globulin Ratio 1.0 (1.0-1.7) SARS-CoV-2 Antigen (Rapid) Negative (NEGATIVE) Urine Collection Type Unknown Urine Color Debbie Urine Clarity Clear Urine pH 5.5 (<5.0-8.0) Urine Specific [place] 1.025 (1.000-1.030) Urine Protein Negative mg/dL (NEG-TRACE) Urine Glucose (UA) Negative mg/dL (NEG) Urine Ketones (Stick) Negative mg/dL (NEG) Urine Blood Negative (NEG) Urine Nitrite Negative (NEG) Urine Bilirubin Small (NEG) Urine Urobilinogen Dipstick 0.2 mg/dL (0.2 mg/dL) Urine Leukocyte Esterase Negative (NEG) Urine RBC 1-2 /HPF (0-2) Urine WBC 1-4 /HPF (0-4) Urine Squamous Epithelial Cells Few /LPF Urine Bacteria Few /HPF (0-FEW) Urine Mucus Marked /LPF Laboratory Tests Test 11/11/19 19:20 11/11/19 21:32 11/11/19 22:30 White Blood Count 12.2 x10^3/uL (4.0-11.0) Red Blood Count 5.14 x10^6/uL (4.30-5.70) Hemoglobin 15.6 g/dL (13.0-17.5) Hematocrit 46.7 % (39.0-53.0) Mean Corpuscular Volume 91 fL (79-100) Mean Corpuscular Hemoglobin 30 pg (25-35) Mean Corpuscular Hemoglobin Concent 33 g/dL (31-37) Red Cell Distribution Width 13.8 % (11.5-14.5) Platelet Count 203 x10^3/uL (140-400) Neutrophils (%) (Auto) 62 % (31-73) Lymphocytes (%) (Auto) 22 % (24-48) Monocytes (%) (Auto) 10 % (0-9) Eosinophils (%) (Auto) 6 % (0-3) Basophils (%) (Auto) 1 % (0-3) Neutrophils # (Auto) 7.5 x10^3/uL (1.8-7.7) Lymphocytes # (Auto) 2.7 x10^3/uL (1.0-4.8) Monocytes # (Auto) 1.2 x10^3/uL (0.0-1.1) Eosinophils # (Auto) 0.8 x10^3/uL (0.0-0.7) Basophils # (Auto) 0.1 x10^3/uL (0.0-0.2) Sodium Level 139 mmol/L (136-145) Potassium Level 4.0 mmol/L (3.5-5.1) Chloride Level 102 mmol/L (98-107) Carbon Dioxide Level 27 mmol/L (21-32) Anion Gap 10 (6-14) Blood Urea Nitrogen 21 mg/dL (8-26) Creatinine 1.3 mg/dL (0.7-1.3) Estimated GFR (Cockcroft-Gault) 55.9 BUN/Creatinine Ratio 16 (6-20) Glucose Level 77 mg/dL (70-99) Lactic Acid Level 1.3 mmol/L (0.4-2.0) Calcium Level 9.1 mg/dL (8.5-10.1) Total Bilirubin 1.3 mg/dL (0.2-1.0) Aspartate Amino Transf (AST/SGOT) 20 U/L (15-37) Alanine Aminotransferase (ALT/SGPT) 41 U/L (16-63) Alkaline Phosphatase 129 U/L (46-116) C-Reactive Protein, Quantitative 140.0 mg/L (0-3.3) Total Protein 7.7 g/dL (6.4-8.2) Albumin 3.9 g/dL (3.4-5.0) Albumin/Globulin Ratio 1.0 (1.0-1.7) SARS-CoV-2 Antigen (Rapid) Negative (NEGATIVE) Urine Collection Type Unknown Urine Color Debbie Urine Clarity Clear Urine pH 5.5 (<5.0-8.0) Urine Specific [place] 1.025 (1.000-1.030) Urine Protein Negative mg/dL (NEG-TRACE) Urine Glucose (UA) Negative mg/dL (NEG) Urine Ketones (Stick) Negative mg/dL (NEG) Urine Blood Negative (NEG) Urine Nitrite Negative (NEG) Urine Bilirubin Small (NEG) Urine Urobilinogen Dipstick 0.2 mg/dL (0.2 mg/dL) Urine Leukocyte Esterase Negative (NEG) Urine RBC 1-2 /HPF (0-2) Urine WBC 1-4 /HPF (0-4) Urine Squamous Epithelial Cells Few /LPF Urine Bacteria Few /HPF (0-FEW) Urine Mucus Marked /LPF Images Images XR 3 views of right elbow: Normal bony alignment. No displaced fracture. No acute osseous or articular abnormality. No fat pad elevation to suggest joint effusion. There is mild soft tissue swelling. IMPRESSION: No acute bony abnormality. VTE Prophylaxis Ordered VTE Prophylaxis Devices: No VTE Pharmacological Prophylaxi: No Assessment/Plan Assessment/Plan A/P: Right elbow cellulitis with abscess - on vancomycin, will need outpatient oral antibiotics, states previously desensitized to sulfa due to his HIV status, however no one has prescribed him any since. I discussed doxycycline and Zyvox, he notes Dr. Odilon Jeter is his HIV physician and would be okay with ID consultation. To the OR with Dr. Bob for irrigation and debridement. 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 He is planning on starting 5-FU therapy outpatient with dermatology. 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 FEN - ADAT post op PPX - ambulatory FULL CODE Dispo - inpatient for right elbow abscess Justicifation of Admission Dx: Justifications for Admission: Justification of Admission Dx: Yes Cellulitis: Cellulitis DANDRE OLIVER MD Nov 12, 2019 07:35
[2019-11-12] MEDS ORDERED: NAPROXEN 250 MG TABLET PO PRN (08:00)
[2019-11-12] MEDS: PANTOPRAZOLE 40 MG TABLET.DR. PO SCH (08:00)
[2019-11-12] MEDS ORDERED: fentaNYL PF VIAL 100 MCG/2 ML VIAL ONE (08:01)
[2019-11-12] MEDS ORDERED: MIDAZOLAM HCL/PF 2 MG/2 ML VIAL. ONE (08:01)
[2019-11-12] MEDS ORDERED: ONDANSETRON PF 4 MG/2 ML VIAL. ONE (08:02)
[2019-11-12] MEDS ORDERED: LIDOCAINE 2% PF 5 ML VIAL. ONE (08:02)
[2019-11-12] MEDS ORDERED: PROPOFOL 10 MG/ML (20ML) VIAL. IV ONE (08:02)
[2019-11-12] MEDS ORDERED: DEXAMETHASONE SOD PHOS 4 MG/ML VIAL ONE (08:02)
[2019-11-12] MEDS: Abacavir/Dolutegravir/Lamivudi (Triumeq Tablet) PO SCH (08:28)
[2019-11-12] MEDS: VANCOMYCIN 1 GM in IV NORMAL SALINE 250ML 250 ML IV SCH ×2 (08:30→19:54)
[2019-11-12] MEDS: ASPIRIN ENTERIC COATED 81 MG TABLET.DR. PO SCH (08:40)
[2019-11-12] MEDS: ATOVAQUONE 750 MG/5 ML ORAL.SUSP. PO SCH (08:40)
[2019-11-12] MEDS: MULTIVITAMIN with MINERAL TABLET. PO SCH (08:41)
[2019-11-12] MEDS ORDERED: IV RINGERS,LACTATED 1000ML 1,000 ML IV SCH (10:00)
[2019-11-12] MEDS ORDERED: ONDANSETRON PF 4 MG/2 ML VIAL. IV PRN (10:00)
[2019-11-12] MEDS ORDERED: PROCHLORPERAZINE 10 MG/2 ML VIAL. IV PRN (10:00)
[2019-11-12] MEDS ORDERED: HYDROmorphone 2 MG/ML VIAL IV PRN (10:00)
[2019-11-12] MEDS ORDERED: LIDOCAINE 1% PF 2 ML VIAL. ID PRN (10:00)
[2019-11-12] MEDS ORDERED: fentaNYL PF VIAL 100 MCG/2 ML VIAL IV PRN ×2 (10:00)
[2019-11-12] MEDS ORDERED: MORPHINE SULFATE 2 MG/ML VIAL. IV PRN (10:00)
--- NOTE | 2019-11-12 12:08 | PDOC4 ---
Operative Note Operative Note Date of Procedure: November 12, 2019 Pre-Op Diagnosis: Olecranon bursitis right elbow Post-Op Diagnosis: Olecranon bursitis, right elbow M70.21 Procedure: right elbow, excision olecranon bursa CPT 39186 Surgeon: Delilah Mcleod MD Anesthesia: General EBL: 10 mL Specimens Obtained: swab cultures for aerobic, anaerobic and gram stain Complications: none Drains: iodoform packing Tourniquet:3 minutes at 250 mm Hg Indications for Procedure: Mr. 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 A few days ago the elbow swelled, then got more red and more painful, and last night he ran a fever. Increased pain if he moves the elbow too much. I spoke to him about the risks benefits and alternatives of elbow incision with olecranon bursectomy. We discussed the risks of scarring, ongoing infection, nerve injury, need for further surgeries or other potential surgical or anesthetic complications. All of his questions about surgery were answered and he desires to proceed. Procedure in Detail: The patient was identified in the preoperative holding area. The correct right elbow was marked by me. The patient was taken to the operating room where general anesthetic was used. The patient remains on scheduled IV antibiotics, so no additional dosing was used. A tourniquet was used on the upper arm. The limb was prepared with sterile solution, and sterile drapes were applied. A longitudinal incision was made, slightly medial to the midline tip of the olecranon to prevent a painful scar over the bony prominence. Care was made not to injure the ulnar nerve which also is located medially. Purulentdrainage was noted. The volume of the olecranon bursa was approximately 10 mL. Digital dissection was used bluntly to make sure that all of the bursa pockets were broken. The bursa was excised with a rongeurs. Irrigation was used, and copious irrigation was used to remove remaining pus and bacteria. Healthy tissue remained after debridement. The tourniquet was released. Bovie electrocautery was used as needed for hemostasis. The skin edges were injected with 0.25% bupivacaine with epinephrine. The wound was closed loosely, and a single layer, with 2-0 nylon horizontal mattress sutures, leaving a central drainage hole wide open. This was loosely packed with 1/2 inch iodoform gauze. A bulky sterile dressing was applied. Needle and sponge counts were correct. There were no apparent complications. The patient returned to the recovery room in stable condition. DELILAH MCLEOD MD Nov 12, 2019 12:08
[2019-11-12] MEDS: VANCOMYCIN PER PHARMACY MC PRN (13:05)
[2019-11-12] MEDS: HYDROcodone/APAP 5/325MG 1 TAB TABLET PO PRN (19:08)
[2019-11-12] MEDS: MORPHINE SULFATE 2 MG/ML VIAL. IV PRN (19:51)
[2019-11-13 03:23] VITALS: BP 125/66
[2019-11-13] MEDS: MORPHINE SULFATE 2 MG/ML VIAL. IV PRN ×3 (05:49→16:56)
[2019-11-13] MEDS: PANTOPRAZOLE 40 MG TABLET.DR. PO SCH (05:50)
[2019-11-13] MEDS: ASPIRIN ENTERIC COATED 81 MG TABLET.DR. PO SCH (07:27)
[2019-11-13] MEDS: MULTIVITAMIN with MINERAL TABLET. PO SCH (07:27)
[2019-11-13] MEDS: Abacavir/Dolutegravir/Lamivudi (Triumeq Tablet) PO SCH (07:28)
[2019-11-13] MEDS: ATOVAQUONE 750 MG/5 ML ORAL.SUSP. PO SCH (07:29)
[2019-11-13] MEDS: VANCOMYCIN 1 GM in IV NORMAL SALINE 250ML 250 ML IV SCH (07:32)
[2019-11-13 07:59] VITALS: BP 128/69
[2019-11-13 07:59] LABS: CALCIUM 8.6 mg/dL (8.5-10.1); CREATININE 1.1 mg/dL (0.7-1.3); GFR 67.8; POTASSIUM 3.5 mmol/L (3.5-5.1)
[2019-11-13 08:02] LABS: BASO # 0.1 x10^3/uL (0.0-0.2); BASO % 1 % (0-3); EOS # 0.5 x10^3/uL (0.0-0.7); EOS % 3 % (0-3); HEMATOCRIT 45.1 % (39.0-53.0); HEMOGLOBIN 15.2 g/dL (13.0-17.5); LYMPH # 2.5 x10^3/uL (1.0-4.8); LYMPH % 17 % (24-48); MEAN CORPUSCULAR HEMOGLOBIN 30 pg (25-35); MEAN CORPUSCULAR HGB CONC 34 g/dL (31-37); MEAN CORPUSCULAR VOLUME 90 fL (79-100); MONO % 6 % (0-9); NEUT # 11.1 x10^3/uL (1.8-7.7); NEUT % 73 % (31-73); PLATELET COUNT 234 x10^3/uL (140-400); RED BLOOD COUNT 5.01 x10^6/uL (4.30-5.70); RED CELL DISTRIBUTION WIDTH 13.6 % (11.5-14.5); WHITE BLOOD COUNT 15.1 x10^3/uL (4.0-11.0)
[2019-11-13 08:05] LABS: VANC TR 9.1 mcg/mL (10.0-20.0)
--- NOTE | 2019-11-13 08:16 | PDOC ---
[employer] PROGRESS NOTE Date of Service DOS: DATE: 11/13/19 TIME: 08:15 Chief Complaint Chief Complaint A/P: Right elbow cellulitis with abscess - on vancomycin, will need outpatient oral antibiotics, states previously desensitized to sulfa due to his HIV status, however no one has prescribed him any since. Zyvox. 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 He is planning on starting 5-FU therapy outpatient with dermatology. 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 A few days ago the elbow swelled, then got more red and more painful, and last night he ran a fever. Increased pain if he moves the elbow too much. He has had several other medical issues recently, and he had a colonoscopy 11/11/2019. He is getting treatment for Murillo's disease, skin cancer. He was diagnosed with HIV in 1986 and is on treatment for that. He had a COVID test yesterday for preparation for the colonoscopy and he was COVID negative. XR reviewed with no right elbow fracture. 11/11: To OR for washout, wound partially closed, wrapped Afebrile, WBC up to 15 today. He is having more pain currently but has not had pain medication for over 4 hours. He is stressed about this being covered by insurance. No chest pain or shortness of breath. Wound culture appears to be staph aureus. Discussed with ID discharge on empiric Zyvox is a possibility however with his increased leukocytosis would be prudent to remain in the hospital overnight repeat labs in the morning await final cultures and discharge on 11/14/2019. Vitals/I&O Vitals/I&O: Vital Signs Date Time Temp Pulse Resp B/P (MAP) Pulse Ox O2 Delivery O2 Flow Rate FiO2 11/13/19 07:14 Room Air 11/13/19 03:23 98.0 82 16 125/66 (85) 97 98.0 11/12/19 12:20 10 I & O 11/12/19 11/12/19 11/13/19 15:00 23:00 07:00 Intake Total 450 ml 250 ml 360 ml Output Total 700 ml Balance 450 ml 250 ml -340 ml Physical Exam General: Alert, Oriented X3, Cooperative, No acute distress Heart: Regular rate Abdomen: Normal bowel sounds, Soft, No tenderness, No hepatosplenomegaly, No masses Extremities: No clubbing, No cyanosis, No edema, Normal pulses, No tenderness/swelling Skin: No breakdown, No significant lesion Labs Labs: Laboratory Tests Test 11/13/19 07:35 White Blood Count 15.1 x10^3/uL (4.0-11.0) Red Blood Count 5.01 x10^6/uL (4.30-5.70) Hemoglobin 15.2 g/dL (13.0-17.5) Hematocrit 45.1 % (39.0-53.0) Mean Corpuscular Volume 90 fL (79-100) Mean Corpuscular Hemoglobin 30 pg (25-35) Mean Corpuscular Hemoglobin Concent 34 g/dL (31-37) Red Cell Distribution Width 13.6 % (11.5-14.5) Platelet Count 234 x10^3/uL (140-400) Neutrophils (%) (Auto) 73 % (31-73) Lymphocytes (%) (Auto) 17 % (24-48) Monocytes (%) (Auto) 6 % (0-9) Eosinophils (%) (Auto) 3 % (0-3) Basophils (%) (Auto) 1 % (0-3) Neutrophils # (Auto) 11.1 x10^3/uL (1.8-7.7) Lymphocytes # (Auto) 2.5 x10^3/uL (1.0-4.8) Monocytes # (Auto) 1.0 x10^3/uL (0.0-1.1) Eosinophils # (Auto) 0.5 x10^3/uL (0.0-0.7) Basophils # (Auto) 0.1 x10^3/uL (0.0-0.2) Sodium Level 138 mmol/L (136-145) Potassium Level 3.5 mmol/L (3.5-5.1) Chloride Level 103 mmol/L (98-107) Carbon Dioxide Level 25 mmol/L (21-32) Anion Gap 10 (6-14) Blood Urea Nitrogen 16 mg/dL (8-26) Creatinine 1.1 mg/dL (0.7-1.3) Estimated GFR (Cockcroft-Gault) 67.8 Glucose Level 147 mg/dL (70-99) Calcium Level 8.6 mg/dL (8.5-10.1) Vancomycin Level Trough 9.1 mcg/mL (10.0-20.0) Vancomycin Last Dose Date 11/12/19 Vancomycin Last Dose Time 1953 Assessment and Plan Assessmemt and Plan Problems Medical Problems: (1) Bursitis of right elbow Status: Acute (2) Cellulitis of right elbow Status: Acute Comment Review of Relevant I have reviewed the following items edita (where applicable) has been applied. Medications: Current Medications Medications (Trade) Dose Ordered Sig/Vu Route PRN Reason Start Time Stop Time Status Last Admin Dose Admin Vancomycin HCl (Vancomycin Trough Level) 1 each 1X ONCE MC 11/13/19 07:30 11/13/19 07:31 DC 11/13/19 07:30 Aspirin (Ecotrin) 81 mg DAILY PO 11/12/19 09:00 11/13/19 07:27 Non-Formulary Medication (Abacavir/ Dolutegravir/ Lamivudi (Triumeq Tablet)) 1 tab DAILY PO 11/12/19 09:00 11/13/19 07:28 Multivitamins (Thera M Plus) 1 tab DAILY PO 11/12/19 09:00 11/13/19 07:27 Ringer's Solution 1,000 ml @ 30 mls/hr Q24H IV 11/12/19 10:00 11/12/19 14:40 DC 11/12/19 10:45 Morphine Sulfate (Morphine Sulfate) 2 mg PRN Q2HR PRN IV PAIN 11/12/19 19:45 11/13/19 05:49 Justicifation of Admission Dx: Justifications for Admission: Justification of Admission Dx: Yes Cellulitis: Cellulitis DANDRE OLIVER MD Nov 13, 2019 08:16
--- NOTE | 2019-11-13 11:01 | PDOC ---
Infectious Disease Note Vital Sign Vital Signs Vital Signs Date Time Temp Pulse Resp B/P (MAP) Pulse Ox O2 Delivery O2 Flow Rate FiO2 11/13/19 08:00 85 11/13/19 07:59 98.9 18 128/69 (88) 97 Room Air 98.9 11/12/19 12:20 10 Labs Lab Laboratory Tests Test 11/13/19 07:35 White Blood Count 15.1 x10^3/uL (4.0-11.0) Red Blood Count 5.01 x10^6/uL (4.30-5.70) Hemoglobin 15.2 g/dL (13.0-17.5) Hematocrit 45.1 % (39.0-53.0) Mean Corpuscular Volume 90 fL (79-100) Mean Corpuscular Hemoglobin 30 pg (25-35) Mean Corpuscular Hemoglobin Concent 34 g/dL (31-37) Red Cell Distribution Width 13.6 % (11.5-14.5) Platelet Count 234 x10^3/uL (140-400) Neutrophils (%) (Auto) 73 % (31-73) Lymphocytes (%) (Auto) 17 % (24-48) Monocytes (%) (Auto) 6 % (0-9) Eosinophils (%) (Auto) 3 % (0-3) Basophils (%) (Auto) 1 % (0-3) Neutrophils # (Auto) 11.1 x10^3/uL (1.8-7.7) Lymphocytes # (Auto) 2.5 x10^3/uL (1.0-4.8) Monocytes # (Auto) 1.0 x10^3/uL (0.0-1.1) Eosinophils # (Auto) 0.5 x10^3/uL (0.0-0.7) Basophils # (Auto) 0.1 x10^3/uL (0.0-0.2) Sodium Level 138 mmol/L (136-145) Potassium Level 3.5 mmol/L (3.5-5.1) Chloride Level 103 mmol/L (98-107) Carbon Dioxide Level 25 mmol/L (21-32) Anion Gap 10 (6-14) Blood Urea Nitrogen 16 mg/dL (8-26) Creatinine 1.1 mg/dL (0.7-1.3) Estimated GFR (Cockcroft-Gault) 67.8 Glucose Level 147 mg/dL (70-99) Calcium Level 8.6 mg/dL (8.5-10.1) Vancomycin Level Trough 9.1 mcg/mL (10.0-20.0) Vancomycin Last Dose Date 11/12/19 Vancomycin Last Dose Time 1953 Micro ANAEROBIC-AEROBIC CULTURE Preliminary Preliminary FEW GRAM POSITIVE COCCI on 11/13/19 at 1018 FINAL ID= [STAPHYLOCOCCUS AUREUS] STAPHYLOCOCCUS AUREUS 11/12/19 Blood Culture - Preliminary, Resulted NO GROWTH AFTER 1 DAY Objective Assessment HIV (VL ,20, CD4 207 in November 2018) Right elbow cellulitis Olecranon bursitis, right elbow s/p excision olecranon bursa, purulent drainage noted, 11/11. Staph aureus Leukocytosis, in part reactive steroids and surgery Murillo's disease. Followed [facility] [place] oncology. Plan Plan of Care Vancomycin per pharmacy protocol. Monitor renal function closely. Cr 1.1.Trough 9.1 Local wound care as directed Follow-up cultures. Susceptibilities still pending D/c mepron Check HIV VL and CD4 Continue Trrichardmecarol ann Thank you Attending Co-Sign The patient was seen and interviewed as well as examined at the bedside. The chart was reviewed. The case was discussed. Agree with the plan of care. DON HOLLINGSWORTH APRN Nov 13, 2019 11:01 VICKIE GEORGE MD Nov 13, 2019 11:14
[2019-11-13] MEDS: VANCOMYCIN PER PHARMACY MC PRN (11:17)
--- NOTE | 2019-11-13 11:19 | NUR ---
Pharmacy Vancomycin Dosing Note S:Consulted to monitor and dose vancomycin started 11/11/19. O:CHACORTA CASH is a 64 year old M with Cellulitis . Height: 5 feet, 10 inches Weight: 77.9 kg Newton Body Weight: 73.00 Adjusted Body Weight: 74.96 Dosing Weight: Actual Other Antibiotics: LABS: Last BUN: 16 Last Creatinine: 1.1 Creatinine Clearance: 73 mL/min Last WBC: 15 Last Procalcitonin: - Tmax (past 24 hours): 98.9 Microbiology: 11/12 [facility] AURE[facility] ABSCESS CX I/O: 1060/700 Drug Levels: Last Trough level: 9.1 on 11/13/19 at 0735 Last dose given 11/13/19 at 0730 Vancomycin Dosing: Loading Dose: 2000 mg x1 Dosing Weight: Actual Target Trough: 10-20 A: Based on: LOW TROUGH, P: 1. INCREASE DOSE TO Vancomycin 1250 mg IV q12h 2. Follow up Trough level NEEDED 3. Pharmacy will continue to monitor, follow and adjust therapy as needed. [facility], 11/13/19 [id number]
[2019-11-13 11:54] VITALS: BP 108/67
--- NOTE | 2019-11-13 12:20 | CONS ---
DATE OF CONSULTATION: 11/13/2019 REQUESTING PHYSICIAN: Cory Ramirez MD. REASON FOR CONSULTATION: Elbow infection. HISTORY OF PRESENT ILLNESS: This is a 64-year-old gentleman who is known to me. The patient is HIV positive, who is on medication, antiretroviral with good control. The patient is on Triumeq. About 2 weeks ago, the patient fell in the house and hit the elbow with skin breakdown then. The patient then subsequently continued to go about his life and he felt like it was getting better, even went to work, etc. and 2-3 days ago it swell up so much and painful, hence he decided to come in. The patient was seen by Dr. Mcleod and was taken to the surgery and I and D was done yesterday. The patient is feeling good. The patient denies any nausea, vomiting or diarrhea. Denies any chest pain, shortness of breath, abdominal pain, urinary symptoms or bowel symptoms. PAST MEDICAL HISTORY: Positive for, as I mentioned, HIV. Because of the COVID, he has not come to see us this year. His last seen was in I believe 11/2018. The patient also recently had a skin cancer removal done from the right groin, colonoscopy done with the polyp removal done, has had some lung surgery done in the past, renetta hole in the brain done in the past, seizure disorder, gastroesophageal reflux disease, arthritis and has had appendicectomy and lobectomy. SOCIAL HISTORY: Negative for smoking, alcohol use or drug use. REVIEW OF SYSTEMS: As per HPI, all other systems reviewed and are negative. CURRENT MEDICATIONS: Reviewed. The patient is on vancomycin. PHYSICAL EXAMINATION: GENERAL: Alert and oriented gentleman, not in distress. VITAL SIGNS: Stable, afebrile. HEENT: NAD. NECK: Supple, no JVP, no lymphadenopathy. LUNGS: Clear. HEART: S1, S2 regular. ABDOMEN: Benign. EXTREMITIES: No edema or cyanosis. SKIN: Unremarkable. NEUROLOGIC: The patient is alert, awake and appropriate. No focal neurologic deficit. In particular, right elbow postsurgical dressing not opened. LABORATORY DATA: White count is 15,000. BUN and creatinine is normal. CRP is 140. Urinalysis and COVID negative. Gram stain of the area was showing Staph aureus and the culture is showing Staph aureus, susceptibilities are pending. Blood culture is negative. IMPRESSION: 1. Right elbow infection with bursitis status post incision and drainage. Staph aureus is growing. 2. Leukocytosis. 3. Human immunodeficiency virus. 4. Gastroesophageal reflux disease. 5. Arthritis. 6. Recent skin cancer removal done. RECOMMENDATIONS: Continue vancomycin. Continue supportive care, local care and we will also get his CD4 and HIV viral load. Thank you very much, Dr. Ramirez, for giving me the opportunity to participate in this patient's care. VICKIE GEORGE MD DR: ANGELIKA/susan JOB#: [id number] / [id number]
[2019-11-13 15:53] VITALS: BP 124/66
[2019-11-13] MEDS: HYDROcodone/APAP 5/325MG 1 TAB TABLET PO PRN (17:18)
[2019-11-13 19:37] VITALS: BP 101/67
[2019-11-13] MEDS: VANCOMYCIN 1.25 GM in IV NORMAL SALINE 250ML 250 ML IV SCH (20:48)
[2019-11-13 22:34] VITALS: BP 109/67
[2019-11-14] MEDS: HYDROcodone/APAP 5/325MG 1 TAB TABLET PO PRN (02:07)
[2019-11-14] MEDS: MORPHINE SULFATE 2 MG/ML VIAL. IV PRN ×2 (02:07→06:02)
[2019-11-14 02:49] VITALS: BP 102/72
[2019-11-14] MEDS: PANTOPRAZOLE 40 MG TABLET.DR. PO SCH (06:02)
[2019-11-14 06:04] LABS: BASO # 0.1 x10^3/uL (0.0-0.2); BASO % 1 % (0-3); EOS # 0.7 x10^3/uL (0.0-0.7); EOS % 7 % (0-3); HEMATOCRIT 42.6 % (39.0-53.0); HEMOGLOBIN 14.5 g/dL (13.0-17.5); LYMPH # 2.4 x10^3/uL (1.0-4.8); LYMPH % 23 % (24-48); MEAN CORPUSCULAR HEMOGLOBIN 31 pg (25-35); MEAN CORPUSCULAR HGB CONC 34 g/dL (31-37); MEAN CORPUSCULAR VOLUME 90 fL (79-100); MONO # 0.8 x10^3/uL (0.0-1.1); MONO % 8 % (0-9); NEUT # 6.5 x10^3/uL (1.8-7.7); NEUT % 62 % (31-73); PLATELET COUNT 220 x10^3/uL (140-400); RED BLOOD COUNT 4.73 x10^6/uL (4.30-5.70); RED CELL DISTRIBUTION WIDTH 13.5 % (11.5-14.5); WHITE BLOOD COUNT 10.6 x10^3/uL (4.0-11.0)
[2019-11-14 06:17] LABS: GFR 75.7
[2019-11-14 07:00] VITALS: BP 95/68
[2019-11-14] MEDS: VANCOMYCIN 1.25 GM in IV NORMAL SALINE 250ML 250 ML IV SCH (08:02)
[2019-11-14] MEDS: Abacavir/Dolutegravir/Lamivudi (Triumeq Tablet) PO SCH (08:03)
[2019-11-14] MEDS: MULTIVITAMIN with MINERAL TABLET. PO SCH (08:03)
[2019-11-14] MEDS: ASPIRIN ENTERIC COATED 81 MG TABLET.DR. PO SCH (08:04)
--- NOTE | 2019-11-14 09:24 | PDOC ---
Infectious Disease Note Subjective: Subjective Pt feels better postop pain is under control until he moves no f/n/v/d Vital Signs: Vital Signs Vital Signs Date Time Temp Pulse Resp B/P (MAP) Pulse Ox O2 Delivery O2 Flow Rate FiO2 11/14/19 07:00 98.9 78 18 95/68 (77) 94 Room Air 98.9 Physical Exam: PHYSICAL EXAM GENERAL: Alert and oriented gentleman, not in distress. HEENT: no icterus NECK: Supple, no JVP, no lymphadenopathy. LUNGS: Clear. HEART: S1, S2 regular. ABDOMEN: Benign. EXTREMITIES: No edema or cyanosis. SKIN: Unremarkable. NEUROLOGIC: The patient is alert, awake and appropriate. No focal neurologic deficit. MSK right elbow postsurgical dressing,dry intact, not opened. Medications: Inpatient Meds: Current Medications Medications (Trade) Dose Ordered Sig/Vu Start Time Stop Time Status Last Admin Dose Admin Acetaminophen/ Hydrocodone Bitart (Lortab 5/325) 1 tab PRN Q4HRS PRN 11/12/19 07:45 11/14/19 02:07 1 TAB Aspirin (Ecotrin) 81 mg DAILY 11/12/19 09:00 11/14/19 08:04 81 MG Atovaquone (Mepron) 750 mg DAILY 11/12/19 09:00 11/13/19 08:15 DC Bupivacaine HCl/ Epinephrine Bitart (Sensorcaine-Epi 0.25%-1:974954 Mpf) 30 ml STK-MED ONCE 11/12/19 07:32 11/12/19 07:32 DC 11/12/19 11:44 20 ML Dexamethasone Sodium Phosphate (Decadron) 4 mg STK-MED ONCE 11/12/19 08:02 11/12/19 08:02 DC Fentanyl Citrate (Fentanyl 2ml Vial) 50 mcg PRN Q5MIN PRN 11/12/19 10:00 11/12/19 14:40 DC Hydromorphone HCl (Dilaudid) 0.5 mg PRN Q10MIN PRN 11/12/19 10:00 11/12/19 14:40 DC Lidocaine HCl (Lidocaine Pf 2% Vial) 5 ml STK-MED ONCE 11/12/19 08:02 11/12/19 08:02 DC Lidocaine HCl (Xylocaine-Mpf 1% 2ml Vial) 2 ml PRN 1X PRN 11/12/19 10:00 11/12/19 14:40 DC Midazolam HCl (Versed) 2 mg STK-MED ONCE 11/12/19 08:01 11/12/19 08:01 DC Morphine Sulfate (Morphine Sulfate) 2 mg PRN Q2HR PRN 11/12/19 19:45 11/14/19 06:02 2 MG Multivitamins (Thera M Plus) 1 tab DAILY 11/12/19 09:00 11/14/19 08:03 1 TAB Naproxen (Naprosyn) 250 mg PRN BID PRN 11/12/19 08:00 11/14/19 08:05 250 MG Non-Formulary Medication (Abacavir/ Dolutegravir/ Lamivudi (Triumeq Tablet)) 1 tab DAILY 11/12/19 09:00 11/14/19 08:03 1 TAB Ondansetron HCl (Zofran) 4 mg PRN Q6HRS PRN 11/12/19 10:00 11/12/19 14:41 DC Pantoprazole Sodium (Protonix) 40 mg DAILYAC 11/12/19 08:00 11/14/19 06:02 40 MG Prochlorperazine Edisylate (Compazine) 5 mg PACU PRN PRN 11/12/19 10:00 11/12/19 14:41 DC Propofol (Diprivan) 200 mg STK-MED ONCE 11/12/19 08:02 11/12/19 08:02 DC Ringer's Solution 1,000 ml @ 30 mls/hr Q24H 11/12/19 10:00 11/12/19 14:40 DC 11/12/19 10:45 30 MLS/HR Vancomycin HCl (Vanco Per Pharmacy) 1 each PRN DAILY PRN 11/11/19 18:00 11/13/19 11:17 1 EACH Vancomycin HCl (Vancomycin Trough Level) 1 each 1X ONCE 11/13/19 07:30 11/13/19 07:31 DC 11/13/19 07:30 1 EACH Vancomycin HCl 1.25 gm/Sodium Chloride 250 ml @ 167 mls/hr Q12H 11/13/19 19:30 11/14/19 08:02 167 MLS/HR Vancomycin HCl 1 gm/Sodium Chloride 250 ml @ 250 mls/hr Q12H 11/12/19 08:00 11/13/19 11:08 DC 11/13/19 07:32 250 MLS/HR Vancomycin HCl 2 gm/Sodium Chloride 500 ml @ 250 mls/hr 1X ONCE 11/11/19 18:00 11/11/19 19:59 DC 11/11/19 19:48 250 MLS/HR Labs: Lab Laboratory Tests Test 11/14/19 05:40 White Blood Count 10.6 x10^3/uL (4.0-11.0) Red Blood Count 4.73 x10^6/uL (4.30-5.70) Hemoglobin 14.5 g/dL (13.0-17.5) Hematocrit 42.6 % (39.0-53.0) Mean Corpuscular Volume 90 fL (79-100) Mean Corpuscular Hemoglobin 31 pg (25-35) Mean Corpuscular Hemoglobin Concent 34 g/dL (31-37) Red Cell Distribution Width 13.5 % (11.5-14.5) Platelet Count 220 x10^3/uL (140-400) Neutrophils (%) (Auto) 62 % (31-73) Lymphocytes (%) (Auto) 23 % (24-48) Monocytes (%) (Auto) 8 % (0-9) Eosinophils (%) (Auto) 7 % (0-3) Basophils (%) (Auto) 1 % (0-3) Neutrophils # (Auto) 6.5 x10^3/uL (1.8-7.7) Lymphocytes # (Auto) 2.4 x10^3/uL (1.0-4.8) Monocytes # (Auto) 0.8 x10^3/uL (0.0-1.1) Eosinophils # (Auto) 0.7 x10^3/uL (0.0-0.7) Basophils # (Auto) 0.1 x10^3/uL (0.0-0.2) Creatinine 1.0 mg/dL (0.7-1.3) Estimated GFR (Cockcroft-Gault) 75.7 Objective: Assessment: 1. Right elbow infection with bursitis status post incision and drainage. Staph aureus on cults 2. Leukocytosis. 3. Human immunodeficiency virus. 4. Gastroesophageal reflux disease. 5. Arthritis. 6. Recent skin cancer removal done. Plan: Plan of Care Vancomycin per pharmacy protocol. Monitor renal function closely. Cr 1.0.Trough 9.1 Continue Triumeq;off mepron Local wound care as directed Follow-up cultures. Susceptibilities still pending f/u HIV VL and CD4 d/w NAGI Bliss MD Nov 14, 2019 09:24
--- NOTE | 2019-11-14 09:28 | NUR ---
SW following. Discussed with RN, pt from home, regular diet, room air, gets around fine, HIV+. Possibility of discharge if IV vanco switched to oral abx. SW will continue to follow.
[2019-11-14 11:00] VITALS: BP 110/66
[2019-11-14] MEDS: VANCOMYCIN PER PHARMACY MC PRN (11:23)
[2019-11-14] MEDS ORDERED: HYDR-3164 PO (11:55)
[2019-11-14] MEDS ORDERED: CEPH-264 PO (12:01)
--- NOTE | 2019-11-14 12:03 | PDOC3 ---
Discharge Summary Visit Information Date of Admission: Nov 11, 2019 Date of Discharge: Nov 14, 2019 Final Diagnosis Right elbow cellulitis with abscess - on vancomycin, will need outpatient oral antibiotics, states previously desensitized to sulfa due to his HIV status, however no one has prescribed him any since. Zyvox. 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 He is planning on starting 5-FU therapy outpatient with dermatology. 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 Problems Medical Problems: (1) Bursitis of right elbow Status: Acute (2) Cellulitis of right elbow Status: Acute Brief Hospital Course Allergies Allergies Coded Allergies Type Severity Reaction Last Updated Verified Sulfa (Sulfonamide Antibiotics) Allergy Severe Anaphylaxis 11/12/19 Yes Vital Signs Vital Signs Date Time Temp Pulse Resp B/P (MAP) Pulse Ox O2 Delivery O2 Flow Rate FiO2 11/14/19 11:00 98.0 66 18 110/66 (81) 96 Room Air 98.0 Lab Results Laboratory Tests Test 11/13/19 07:35 11/14/19 05:40 White Blood Count 15.1 x10^3/uL (4.0-11.0) 10.6 x10^3/uL (4.0-11.0) Red Blood Count 5.01 x10^6/uL (4.30-5.70) 4.73 x10^6/uL (4.30-5.70) Hemoglobin 15.2 g/dL (13.0-17.5) 14.5 g/dL (13.0-17.5) Hematocrit 45.1 % (39.0-53.0) 42.6 % (39.0-53.0) Mean Corpuscular Volume 90 fL (79-100) 90 fL (79-100) Mean Corpuscular Hemoglobin 30 pg (25-35) 31 pg (25-35) Mean Corpuscular Hemoglobin Concent 34 g/dL (31-37) 34 g/dL (31-37) Red Cell Distribution Width 13.6 % (11.5-14.5) 13.5 % (11.5-14.5) Platelet Count 234 x10^3/uL (140-400) 220 x10^3/uL (140-400) Neutrophils (%) (Auto) 73 % (31-73) 62 % (31-73) Lymphocytes (%) (Auto) 17 % (24-48) 23 % (24-48) Monocytes (%) (Auto) 6 % (0-9) 8 % (0-9) Eosinophils (%) (Auto) 3 % (0-3) 7 % (0-3) Basophils (%) (Auto) 1 % (0-3) 1 % (0-3) Neutrophils # (Auto) 11.1 x10^3/uL (1.8-7.7) 6.5 x10^3/uL (1.8-7.7) Lymphocytes # (Auto) 2.5 x10^3/uL (1.0-4.8) 2.4 x10^3/uL (1.0-4.8) Monocytes # (Auto) 1.0 x10^3/uL (0.0-1.1) 0.8 x10^3/uL (0.0-1.1) Eosinophils # (Auto) 0.5 x10^3/uL (0.0-0.7) 0.7 x10^3/uL (0.0-0.7) Basophils # (Auto) 0.1 x10^3/uL (0.0-0.2) 0.1 x10^3/uL (0.0-0.2) Sodium Level 138 mmol/L (136-145) Potassium Level 3.5 mmol/L (3.5-5.1) Chloride Level 103 mmol/L (98-107) Carbon Dioxide Level 25 mmol/L (21-32) Anion Gap 10 (6-14) Blood Urea Nitrogen 16 mg/dL (8-26) Creatinine 1.1 mg/dL (0.7-1.3) 1.0 mg/dL (0.7-1.3) Estimated GFR (Cockcroft-Gault) 67.8 75.7 Glucose Level 147 mg/dL (70-99) Calcium Level 8.6 mg/dL (8.5-10.1) 25-Hydroxy Vitamin D Total 37.6 ng/mL (30-100) Vancomycin Level Trough 9.1 mcg/mL (10.0-20.0) Vancomycin Last Dose Date 11/12/19 Vancomycin Last Dose Time 1953 Laboratory Tests Test 11/14/19 05:40 White Blood Count 10.6 x10^3/uL (4.0-11.0) Red Blood Count 4.73 x10^6/uL (4.30-5.70) Hemoglobin 14.5 g/dL (13.0-17.5) Hematocrit 42.6 % (39.0-53.0) Mean Corpuscular Volume 90 fL (79-100) Mean Corpuscular Hemoglobin 31 pg (25-35) Mean Corpuscular Hemoglobin Concent 34 g/dL (31-37) Red Cell Distribution Width 13.5 % (11.5-14.5) Platelet Count 220 x10^3/uL (140-400) Neutrophils (%) (Auto) 62 % (31-73) Lymphocytes (%) (Auto) 23 % (24-48) Monocytes (%) (Auto) 8 % (0-9) Eosinophils (%) (Auto) 7 % (0-3) Basophils (%) (Auto) 1 % (0-3) Neutrophils # (Auto) 6.5 x10^3/uL (1.8-7.7) Lymphocytes # (Auto) 2.4 x10^3/uL (1.0-4.8) Monocytes # (Auto) 0.8 x10^3/uL (0.0-1.1) Eosinophils # (Auto) 0.7 x10^3/uL (0.0-0.7) Basophils # (Auto) 0.1 x10^3/uL (0.0-0.2) Creatinine 1.0 mg/dL (0.7-1.3) Estimated GFR (Cockcroft-Gault) 75.7 Brief Hospital Course Mr Mcclure is a 64-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 A few days ago the elbow swelled, then got more red and more painful, and last night he ran a fever. Increased pain if he moves the elbow too much. He has had several other medical issues recently, and he had a colonoscopy 11/11/2019. He is getting treatment for Murillo's disease, skin cancer. He was diagnosed with HIV in 1986 and is on treatment for that. He had a COVID test yesterday for preparation for the colonoscopy and he was COVID negative. XR reviewed with no right elbow fracture. 11/11: To OR for washout, wound partially closed, wrapped Afebrile, WBC up to 15 today. He is having more pain currently but has not had pain medication for over 4 hours. He is stressed about this being covered by insurance. No chest pain or Discharge Information Condition at Discharge: Improved Follow Up: Weeks Disposition/Orders: D/C to Home Scheduled Abacavir/Dolutegravir/Lamivudi (Triumeq Tablet) 1 Each Tablet, 1 TAB PO DAILY for HIV, (Reported) Entered as Reported by: MORELIA PATEL on 09/22/181420 Last Action: Converted on 11/12/19736 by DANDRE OLIVER MD Aspirin (Aspir-Low) 81 Mg Tablet.dr, 1 TAB PO DAILY for HEART, #30 Ref 3 (Reported) Entered as Reported by: MORELIA PATEL on 09/22/181421 Last Action: Continued on 11/12/19736 by DANDRE OLIVER MD Atovaquone (Atovaquone) 750 Mg/5 Ml Oral.susp, 750 MG PO DAILY for IMMUNE , (Reported) Entered as Reported by: MORELIA PATEL on 09/22/181425 Last Action: Continued on 11/12/19736 by DANDRE OLIVER MD Cephalexin (Keflex) 500 Mg Capsule, 500 MG PO QID for elbow infection for 14 Days, #56 Prescribed by: WILLOW DUMONT on 11/14/19 1201 Hydrocodone/Apap 5-325 (Siren 5-325 Tablet) 1 Each Tablet, 1 TAB PO Q4HRS for Pain, #20 Prescribed by: WILLOW DUMONT on 11/14/19 1156 Multivits,Ca,Min/Iron/FA/Lycop (Centrum Men's Tablet) 1 Each Tablet, 1 TAB PO DAILY for VITAMIN, (Reported) Entered as Reported by: MORELIA PATEL on 09/22/181422 Last Action: Converted on 11/12/19736 by DANDRE OLIVER MD Pantoprazole Sodium (Protonix) 20 Mg Tablet., 40 MG PO DAILY for HEARTBURN, (Reported) Entered as Reported by: MORELIA PATEL on 09/22/18 142 Last Action: Converted on 11/12/19736 by DANDRE OLIVER MD Scheduled PRN Naproxen Sodium (Aleve) 220 Mg Capsule, 220 MG PO BID PRN for PAIN, (Reported) Entered as Reported by: MORELIA PATEL on 09/22/181422 Last Action: Converted on 11/12/19736 by DANDRE OLIVER MD Discontinued Medications Hydrocodone Bit/Acetaminophen (Hydrocodone-Apap 5-300) 1 Each Tablet, 1 TAB PO PRN BID PRN for pain MDD 2 Tablet(s) for 15 Days, #30 Ref 0 Prescribed by: DAWOOD ABRAHAM on 05/09/19 1522 Patient Instructions Patient Instructions > 30 min face to facemask f/u ID clinic in 2 weeks, MSSA culture pos, abx for discharge discussed with Dr. Georgette Jeter Justicifation of Admission Dx: Justifications for Admission: Justification of Admission Dx: Yes Cellulitis: Cellulitis WILLOW DUMONT MD Nov 14, 2019 12:03
--- NOTE | 2019-11-14 15:22 | NUR ---
Patient discharged at approximately 1515. Patient verbalized understanding of discharge instructions, wound care/dressing change, and follow up with primary physician, Dr. Jeter, and Dr. Mcleod. No questions at this time. Prescription given. Patient stated pictures were already taken, did not want pictures taken again d/t dressing change being done earlier today.
== END 2019-11-14 15:20 | disposition home or self-care (01) | DRG 501 ==
LOC: ER 16:12 → 4 NORTH 19:12
PROVIDERS: ADMIT Internal Medicine; ATTEND Internal Medicine
PROC: 0MB30ZZ Excision of Right Elbow Bursa and Ligament, Open Approach (ICD-10-PCS; principal; 2019-11-12 10:00)
DX: M70.21 Olecranon bursitis, right elbow (principal); L02.413 Cutaneous abscess of right upper limb; L03.113 Cellulitis of right upper limb; G40.909 Epilepsy, unspecified, not intractable, without status epilepticus; Z20.828 Contact with and (suspected) exposure to other viral communicable diseases; M19.90 Unspecified osteoarthritis, unspecified site; K21.9 Gastro-esophageal reflux disease without esophagitis; Z87.891 Personal history of nicotine dependence; Z86.007 Personal history of in-situ neoplasm of skin; Z85.828 Personal history of other malignant neoplasm of skin; Z88.2 Allergy status to sulfonamides; Z90.49 Acquired absence of other specified parts of digestive tract; Z90.2 Acquired absence of lung [part of]; Y93.89 Activity, other specified; Z80.9 Family history of malignant neoplasm, unspecified; Z82.49 Family history of ischemic heart disease and other diseases of the circulatory system
CPT/HCPCS: 36415; 73080; 80048; 80053; 80202; 81001; 82306; 82565; 83605; 85025; 86140; 86360; 87040; 87071; 87075; 87426; 87536; J1100; J2250; J2270; J2405; J2704; J3010; J3370; J3490; J7040; J7050; J7120; 99285-25; G0378; J7030; U0003-CS

== ENCOUNTER 2020-01-08 15:29 | Emergency (ER) | payer BC ==
[~2020-01-08] VITALS: Ht 177.8 cm; Wt 80.0 kg
[~2020-01-08 15:29] MED LIST changes: +CEPH-264 PO
[2020-01-08 16:50] VITALS: BP 158/84
--- NOTE | 2020-01-08 18:23 | RAD ---
HIP LEFT 2V WITH PELVIS History: Reason: L hip pain / Spl. Instructions: / History: Technique: AP view the pelvis and 2 additional views of the left hip. Comparison: None. Findings: Normal alignment. No fracture. Mild bilateral hip degenerative changes. Lower lumbar spondylosis. Prominence of bilateral femoral head/neck junctions, can be seen with femoral acetabular impingement morphology. Impression: 1. No acute osseous abnormality. 2. Mild bilateral hip DJD. Electronically signed by: Juan R Montes DO (01/08/2020 6:20 PM) [facility]
[2020-01-08] MEDS ORDERED: ORPHENADRINE CITRATE 60 MG/2 ML VIAL. IM ONE (19:00)
[2020-01-08] MEDS ORDERED: KETOROLAC 30 MG/ML VIAL. IM ONE (19:00)
[2020-01-08] MEDS ORDERED: CYCL10TA2 PO (19:33)
[2020-01-08] MEDS ORDERED: NAPR-695 PO (19:33)
--- NOTE | 2020-01-08 19:34 | PHYS DOC ---
Past Medical History Past Medical History: Cancer, HIV Additional Past Medical Histor: Toxoplasmosis, HPV (AILYN FOWLER APRN) Past Surgical History: Appendectomy, Other Additional Past Surgical Histo: hernia, brain, lung, (AILYN FOWLER APRN) Smoking Status: Former Smoker Alcohol Use: Rarely (AILYN FOWLER APRN) General Adult EDM: Chief Complaint: HIP PAIN HPI: HPI: Patient is a 64 year old male, accompanied by his , who presents to the emergency department with complaints of left hip pain since last night. He denies any injury, trauma, or fall. The patient states that he did a lot of bending over while working at [employer] yesterday evening. He denies any radiation of the pain. He denies any numbness, tingling, or weakness of the affected extremity. He states that there is no pain at rest however if he stands or moves his left hip there is pain 10 out of 10 on the pain scale. He denies any radiation of the pain, or back pain. (AILYN FOWLER APRN) Review of Systems: Review of Systems: Constitutional: Denies fever or chills. [] Musculoskeletal: Denies back pain; see HPI Integument: Denies rash. [] Neurologic: Denies focal weakness or sensory changes. [] Complete ROS is negative unless otherwise stated in the HPI. (AILYN FOWLER APRN) Heart Score: Risk Factors: Risk Factors: DM, Current or recent (<one month) smoker, HTN, HLP, family history of CAD, obesity. Risk Scores: Score 0 - 3: 2.5% MACE over next 6 weeks - Discharge Home Score 4 - 6: 20.3% MACE over next 6 weeks - Admit for Clinical Observation Score 7 - 10: 72.7% MACE over next 6 weeks - Early Invasive Strategies (AILYN FOWLER APRN) Current Medications: Current Medications Medications (Trade) Dose Ordered Sig/Vu Start Time Stop Time Status Last Admin Dose Admin Ketorolac Tromethamine (Toradol 30mg Vial) 30 mg 1X ONCE 01/08/20 19:00 01/08/20 19:01 DC 01/08/20 19:05 30 MG Orphenadrine Citrate (Norflex) 60 mg 1X ONCE 01/08/20 19:00 01/08/20 19:01 DC 01/08/20 19:05 60 MG (AILYN FOWLER APRN) Allergies: Allergies: Allergies Coded Allergies Type Severity Reaction Last Updated Verified Sulfa (Sulfonamide Antibiotics) Allergy Severe Anaphylaxis 11/12/19 Yes (AILYN FOWLER APRN) Physical Exam: PE: Constitutional: Well developed, well nourished, no acute distress, non-toxic appearance. [] HENT: Normocephalic, atraumatic, bilateral external ears normal, nose normal. [] Eyes: PERRLA, EOMI, conjunctiva normal, no discharge. [] Neck: Normal range of motion, no stridor. [] Cardiovascular:Heart rate regular rhythm Lungs & Thorax: Respirations even and unlabored, no retractions, no respiratory distress Skin: Warm, dry, no erythema, no rash. [] Extremities: Left hip: no obvious deformity, no shortening, no rotation, no cyanosis, ROM intact, no edema; tenderness to palpation over the left lumbar paraspinal and gluteal region, no bruising, no edema. [] Neurologic: Alert and oriented X 3, no focal deficits noted. [] Psychologic: Affect normal, judgement normal, mood normal. [] (AILYN FOWLER APRN) Current Patient Data: Vital Signs: Vital Signs Date Time Temp Pulse Resp B/P (MAP) Pulse Ox O2 Delivery O2 Flow Rate FiO2 01/08/20 16:50 98.6 74 16 158/84 (108) 98 Room Air 98.6 (AILYN FOWLER APRN) EKG: EKG: [] (AILYN FOWLER APRN) Radiology/Procedures: Radiology/Procedures: PROCEDURE: HIP LEFT 2V WITH PELVIS HIP LEFT 2V WITH PELVIS History: Reason: L hip pain / Spl. Instructions: / History: Technique: AP view the pelvis and 2 additional views of the left hip. Comparison: None. Findings: Normal alignment. No fracture. Mild bilateral hip degenerative changes. Lower lumbar spondylosis. Prominence of bilateral femoral head/neck junctions, can be seen with femoral acetabular impingement morphology. Impression: 1. No acute osseous abnormality. 2. Mild bilateral hip DJD. Electronically signed by: Juan R Montes DO (01/08/2020 6:20 PM) [facility] (AILYN FOWLER APRN) Course & Med Decision Making: Course & Med Decision Making Pertinent Labs and Imaging studies reviewed. (See chart for details) [] (AILYN FOWLER APRN) Course & Med Decision Making I have reviewed the PA/DIVER'S TENDER's note and Plan of Care. I was available for consultation as needed during the patient's visit in the emergency department. I agree with the clinical impression, plans and disposition. (KARI PUTNAM MD) Dragon Disclaimer: Dragon Disclaimer: This electronic medical record was generated, in whole or in part, using a voice recognition dictation system. (AILYN FOWLER APRN) Departure Departure Impression: Primary Impression: Hip pain, left Additional Impression: Acute lumbar myofascial strain Qualified Codes: S39.012A - Strain of muscle, fascia and tendon of lower back, initial encounter Disposition: HOME, SELF-CARE Condition: STABLE Referrals: JOAQUIN GONZALEZ MD (PCP) PATRIC KNIGHT II, MD Patient Instructions: Hip Pain, Myofascial Pain Syndrome Additional Instructions: Fill the prescriptions and use as directed. Activity as tolerated. Follow up with your primary care doctor or Dr. Knight in 1-2 days for further evaluation and treatment. Return to the ER if symptoms worsen. Scripts Cyclobenzaprine Hcl (CYCLOBENZAPRINE HCL) 10 Mg Tablet 1 TAB PO TID PRN for PAIN, #30 TAB 0 Refills Prov: AILYN FOWLER APRN 01/08/20 Naproxen (NAPROXEN) 375 Mg Tablet 1 TAB PO BID for 10 Days, #20 TAB 0 Refills Prov: AILYN FOWLER APRN 01/08/20 AILYN FOWLER APRN Jan 08, 2020 19:34 KARI PUTNAM MD Jan 09, 2020 00:12
== END 2020-01-08 19:35 | disposition home or self-care (01) ==
LOC: ER 15:29
DX: S39.012A Strain of muscle, fascia and tendon of lower back, initial encounter (principal); M25.552 Pain in left hip; Z90.89 Acquired absence of other organs; Z98.890 Other specified postprocedural states; Z87.891 Personal history of nicotine dependence; Z85.9 Personal history of malignant neoplasm, unspecified; X50.9XXA Other and unspecified overexertion or strenuous movements or postures, initial encounter; Y93.89 Activity, other specified; Y92.89 Other specified places as the place of occurrence of the external cause; Y99.0 Civilian activity done for income or pay
CPT/HCPCS: 73502; 96372; 99284; J1885; J2360

== ENCOUNTER 2020-07-27 14:00 | Emergency (ER) | payer BC ==
[~2020-07-27] VITALS: Ht 177.8 cm; Wt 84.1 kg
[~2020-07-27 14:00] MED LIST changes: +CYCL10TA2 PO; -HYDR-2163 PO; +HYDR-3068 PO; +NAPR-695 PO
[2020-07-27 14:30] VITALS: BP 131/77
--- NOTE | 2020-07-27 14:53 | ED.ADGEN ---
Past Medical History Past Medical History: Cancer, HIV Additional Past Medical Histor: Toxoplasmosis, HPV Past Surgical History: Appendectomy, Other Additional Past Surgical Histo: hernia, brain, lung, Smoking Status: Former Smoker Alcohol Use: Rarely General Adult EDM: Chief Complaint: FLU SYMPTOM HPI: HPI: Patient is a 65 year male who arrives ambulatory to the emergency department complaining of a dry cough for the past week. Patient reports his is also patient in the emergency department with similar symptoms. Patient states he wanted to have this evaluated prior to this developing into something worse. Despite having a dry cough, he denies any history of fever or shortness of air. He does report body aches however he will does believe that is related to his dry cough. He denies any chest pain at rest and states he is been feeling very well otherwise. He also reports that he has finished the coronavirus vaccination series. He is awake, alert and nontoxic-appearing. Review of Systems: Review of Systems: Constitutional: Denies fever or chills. [] Eyes: Denies change in visual acuity. [] HENT: Denies nasal congestion or sore throat. [] Respiratory: Reports cough as well as chest wall pain. Denies shortness of breath. [] Cardiovascular: Denies chest pain or edema. [] GI: Denies abdominal pain, nausea, vomiting, bloody stools or diarrhea. [] : Denies dysuria. [] Musculoskeletal: Denies back pain or joint pain. [] Integument: Denies rash. [] Neurologic: Denies headache, focal weakness or sensory changes. [] Endocrine: Denies polyuria or polydipsia. [] Lymphatic: Denies swollen glands. [] Psychiatric: Denies depression or anxiety. [] Allergies: Allergies: Allergies Coded Allergies Type Severity Reaction Last Updated Verified Sulfa (Sulfonamide Antibiotics) Allergy Severe Anaphylaxis 11/12/19 Yes Physical Exam: PE: Constitutional: Well developed, well nourished, no acute distress, non-toxic appearance. [] HENT: Normocephalic, atraumatic, bilateral external ears normal, oropharynx moist, no oral exudates, nose normal. [] Eyes: PERRLA, EOMI, conjunctiva normal, no discharge. [] Neck: Normal range of motion, no tenderness, supple, no stridor. [] Cardiovascular:Heart rate regular rhythm, no murmur [] Lungs & Thorax: Bilateral breath sounds clear to auscultation [] Abdomen: Bowel sounds normal, soft, no tenderness, no masses, no pulsatile masses. [] Skin: Warm, dry, no erythema, no rash. [] Back: No tenderness, no CVA tenderness. [] Extremities: No tenderness, no cyanosis, no clubbing, ROM intact, no edema. [] Neurologic: Alert and oriented X 3, normal motor function, normal sensory function, no focal deficits noted. [] Psychologic: Affect normal, judgement normal, mood normal. [] Current Patient Data: Vital Signs: Vital Signs Date Time Temp Pulse Resp B/P (MAP) Pulse Ox O2 Delivery O2 Flow Rate FiO2 07/27/20 14:30 97.9 68 18 131/77 (95) 98 Room Air 97.9 EKG: EKG: [] Heart Score: C/O Chest Pain: No Risk Factors: Risk Factors: DM, Current or recent (<one month) smoker, HTN, HLP, family history of CAD, obesity. Risk Scores: Score 0 - 3: 2.5% MACE over next 6 weeks - Discharge Home Score 4 - 6: 20.3% MACE over next 6 weeks - Admit for Clinical Observation Score 7 - 10: 72.7% MACE over next 6 weeks - Early Invasive Strategies Radiology/Procedures: Radiology/Procedures: [] Impression: [facility] [address] [place] [address] IMAGING REPORT Signed PATIENT: CHACORTA CASH ACCOUNT: [id number] : 1955 LOCATION: ER AGE: 65 SEX: M EXAM STATUS: PRE ER ORD. PHYSICIAN: JOSUE STEWART DO REASON: cough PROCEDURE: CHEST PA & LATERAL PA and lateral chest. HISTORY: Cough PA and lateral views were taken of the chest. There is no pneumothorax or pleural effusion. Lungs are free of infiltrates. Heart is normal in size. IMPRESSION: 1. No acute chest disease. Electronically signed by: Moy Wang MD (07/27/2020 3:08 PM) [facility] DICTATED and SIGNED BY: MOY WANG MD DATE: 07/27/20 [id number] 0 Course & Med Decision Making: Course & Med Decision Making Pertinent Labs and Imaging studies reviewed. (See chart for details) [] Sakina Disclaimer: Sakina Disclaimer: This electronic medical record was generated, in whole or in part, using a voice recognition dictation system. Departure Departure Impression: Primary Impression: Cough Disposition: HOME / SELF CARE / HOMELESS Condition: STABLE Referrals: JOAQUIN GONZALEZ MD (PCP) Patient Instructions: Cough, Adult Additional Instructions: The patient remains awake, alert and in no acute distress. Given that the patient is not having any shortness of air or chest pain I do not have any concerns with respect to any acute cardiopulmonary disease. Nonetheless have advised him return should any of the symptoms develop. It is very possible the patient may have come in contact with coronavirus as he is to a patient that is under suspicion for the disease. I have advised that he get tested if his test positive and/or he develops any further symptoms despite having had the vaccinations. The patient understands and has agreed to do so. He is nontoxic-appearing and resting comfortably now. He is stable for discharge. Scripts Benzonatate (TESSALON PERLE) 100 Mg Capsule 1 CAP PO TID for cough for 7 Days, #21 CAP Prov: JOSUE STEWART DO 07/27/20 JOSUE STEWART DO Jul 27, 2020 14:53
--- NOTE | 2020-07-27 15:10 | RAD ---
PA and lateral chest. HISTORY: Cough PA and lateral views were taken of the chest. There is no pneumothorax or pleural effusion. Lungs are free of infiltrates. Heart is normal in size. IMPRESSION: 1. No acute chest disease. Electronically signed by: Moy Wang MD (07/27/2020 3:08 PM) [facility]
[2020-07-27] MEDS ORDERED: BENZ100C PO (15:19)
== END 2020-07-27 15:25 | disposition home or self-care (01) ==
LOC: ER 14:00
DX: R05 Cough (principal); R07.89 Other chest pain; Z87.891 Personal history of nicotine dependence; Z90.89 Acquired absence of other organs; Z85.9 Personal history of malignant neoplasm, unspecified; Z98.890 Other specified postprocedural states
CPT/HCPCS: 71046; 99283

== ENCOUNTER 2020-08-16 09:39 | Observation (INO) | payer BC ==
[~2020-08-16] VITALS: Ht 177.8 cm; Wt 85.4 kg
[~2020-08-16 09:39] MED LIST changes: +BENZ100C PO
--- NOTE | 2020-08-16 09:57 | EKG ---
[address] [place] [address] Test Date: 2020-08-16 Test Time: 09:44:22 Pat Name: CHACORTA CASH Department: Room: Gender: M [employer]: : 1955 Requested By: JOSUE STEWART Order Number: [id number] Reading MD: Measurements Intervals [place] Rate: 46 P: 41 MI: 176 QRS: 28 QRSD: 94 T: 52 QT: 454 QTc: 402 Interpretive Statements SINUS BRADYCARDIA LEFT ATRIAL ABNORMALITY ABNORMAL ECG RI6.01 No previous ECG available for comparison
--- NOTE | 2020-08-16 10:05 | ED.ADGEN ---
Past Medical History Past Medical History: Cancer, HIV Additional Past Medical Histor: Toxoplasmosis, HPV Past Surgical History: Appendectomy, Other Additional Past Surgical Histo: hernia, brain, lung, Smoking Status: Former Smoker Alcohol Use: Rarely General Adult EDM: Chief Complaint: CHEST PAIN HPI: HPI: Patient is a 65-year-old male who arrives ambulatory to the emergency department complaining of chest pain. Patient reports this chest pain began roughly around 130 this morning. Patient states he recently returned to work and ate some food at work that have been refrigerated and were within the prescribed dates of goodness however was old by his reports. Patient reports he has felt this discomfort despite his best efforts to take care of this with [id number] remedies. Patient states at this point he is not certain whether this may be a digestive issue or related to cardiac source. The patient denies any history of prodromal illness or problem prior to eating yesterday. He further denies any shortness of air or fever. He is awake, alert and nontoxic-appearing. Review of Systems: Review of Systems: Constitutional: Denies fever or chills. [] Eyes: Denies change in visual acuity. [] HENT: Denies nasal congestion or sore throat. [] Respiratory: Denies cough or shortness of breath. [] Cardiovascular: Reports chest pain. Denies edema. [] GI: Denies abdominal pain, nausea, vomiting, bloody stools or diarrhea. [] : Denies dysuria. [] Musculoskeletal: Denies back pain or joint pain. [] Integument: Denies rash. [] Neurologic: Denies headache, focal weakness or sensory changes. [] Endocrine: Denies polyuria or polydipsia. [] Lymphatic: Denies swollen glands. [] Psychiatric: Denies depression or anxiety. [] Current Medications: Current Medications Medications (Trade) Dose Ordered Sig/Vu Start Time Stop Time Status Last Admin Dose Admin Aspirin (Aspirin Chewable) 324 mg 1X ONCE 08/16/20 10:30 08/16/20 10:31 DC 08/16/20 10:27 324 MG Morphine Sulfate (Morphine Sulfate) 4 mg 1X ONCE 08/16/20 10:45 08/16/20 10:46 DC 08/16/20 10:59 4 MG Nitroglycerin (Nitrostat) 0.4 mg PRN Q5MIN PRN 08/16/20 10:15 08/16/20 10:27 0.4 MG Ondansetron HCl (Zofran) 4 mg 1X ONCE 08/16/20 10:45 08/16/20 10:46 DC 08/16/20 10:59 4 MG Allergies: Allergies: Allergies Coded Allergies Type Severity Reaction Last Updated Verified Sulfa (Sulfonamide Antibiotics) Allergy Severe Anaphylaxis 11/12/19 Yes Physical Exam: PE: Constitutional: Well developed, well nourished, no acute distress, non-toxic appearance. [] HENT: Normocephalic, atraumatic, bilateral external ears normal, oropharynx moist, no oral exudates, nose normal. [] Eyes: PERRLA, EOMI, conjunctiva normal, no discharge. [] Neck: Normal range of motion, no tenderness, supple, no stridor. [] Cardiovascular:Heart rate regular rhythm, no murmur [] Lungs & Thorax: Bilateral breath sounds clear to auscultation [] Abdomen: Bowel sounds normal, soft, no tenderness, no masses, no pulsatile masses. [] Skin: Warm, dry, no erythema, no rash. [] Back: No tenderness, no CVA tenderness. [] Extremities: No tenderness, no cyanosis, no clubbing, ROM intact, no edema. [] Neurologic: Alert and oriented X 3, normal motor function, normal sensory function, no focal deficits noted. [] Psychologic: Affect normal, judgement normal, mood normal. [] Current Patient Data: Labs: Laboratory Tests Test 08/16/20 09:50 White Blood Count 11.5 x10^3/uL (4.0-11.0) H Red Blood Count 4.68 x10^6/uL (4.30-5.70) Hemoglobin 14.2 g/dL (13.0-17.5) Hematocrit 42.4 % (39.0-53.0) Mean Corpuscular Volume 91 fL (79-100) Mean Corpuscular Hemoglobin 30 pg (25-35) Mean Corpuscular Hemoglobin Concent 34 g/dL (31-37) Red Cell Distribution Width 14.3 % (11.5-14.5) Platelet Count 236 x10^3/uL (140-400) Neutrophils (%) (Auto) 50 % (31-73) Lymphocytes (%) (Auto) 35 % (24-48) Monocytes (%) (Auto) 9 % (0-9) Eosinophils (%) (Auto) 6 % (0-3) H Basophils (%) (Auto) 1 % (0-3) Neutrophils # (Auto) 5.7 x10^3/uL (1.8-7.7) Lymphocytes # (Auto) 4.1 x10^3/uL (1.0-4.8) Monocytes # (Auto) 1.0 x10^3/uL (0.0-1.1) Eosinophils # (Auto) 0.7 x10^3/uL (0.0-0.7) Basophils # (Auto) 0.1 x10^3/uL (0.0-0.2) Sodium Level 141 mmol/L (136-145) Potassium Level 4.0 mmol/L (3.5-5.1) Chloride Level 105 mmol/L (98-107) Carbon Dioxide Level 25 mmol/L (21-32) Anion Gap 11 (6-14) Blood Urea Nitrogen 17 mg/dL (8-26) Creatinine 1.2 mg/dL (0.7-1.3) Estimated GFR (Cockcroft-Gault) 61.1 BUN/Creatinine Ratio 14 (6-20) Glucose Level 132 mg/dL (70-99) H Calcium Level 9.1 mg/dL (8.5-10.1) Total Bilirubin 0.4 mg/dL (0.2-1.0) Aspartate Amino Transferase (AST) 31 U/L (15-37) Alanine Aminotransferase (ALT) 34 U/L (16-63) Alkaline Phosphatase 113 U/L (46-116) Troponin I Quantitative < 0.017 ng/mL (0.000-0.055) QA-Vir-A-Type Natriuretic Peptide 206 pg/mL (0-124) H Total Protein 6.7 g/dL (6.4-8.2) Albumin 3.7 g/dL (3.4-5.0) Albumin/Globulin Ratio 1.2 (1.0-1.7) Lipase 97 U/L (73-393) Laboratory Tests 08/16/20 09:50 Laboratory Tests 08/16/20 09:50 Vital Signs: Vital Signs Date Time Temp Pulse Resp B/P (MAP) Pulse Ox O2 Delivery O2 Flow Rate FiO2 08/16/20 10:59 18 Room Air 08/16/20 10:35 45 96 08/16/20 09:42 98.6 98.6 EKG: EKG: EKG was obtained at 9:44 AM and reveals a sinus bradycardia with a ventricular rate of 46 bpm. There is evidence of left atrial enlargement without acute ST/T wave changes that may denote ischemia. [] Repeat EKG was obtained at 10:20 AM and revealed a sinus bradycardia with a ventricular rate of 39 bpm. Left atrial abnormality is present. There is minimal ST depression in lead II present Heart Score: C/O Chest Pain: Yes HEART Score for Chest Pain: HEART Score for Chest Pain Response (Comments) Value History Slighlty/Non-Suspicious 0 ECG Nonspecific Repolarizatio 1 Age >45 - < 65 1 Risk Factors 1 or 2 Risk Factors 1 Troponin < Normal Limit 0 Total 3 Risk Factors: Risk Factors: DM, Current or recent (<one month) smoker, HTN, HLP, family history of CAD, obesity. Risk Scores: Score 0 - 3: 2.5% MACE over next 6 weeks - Discharge Home Score 4 - 6: 20.3% MACE over next 6 weeks - Admit for Clinical Observation Score 7 - 10: 72.7% MACE over next 6 weeks - Early Invasive Strategies Radiology/Procedures: Radiology/Procedures: [] Impression: [facility] [address] [place] [address] IMAGING REPORT Signed PATIENT: CHACORTA CASH ACCOUNT: [id number] : 1955 LOCATION: ER AGE: 65 SEX: M EXAM STATUS: REG ER ORD. PHYSICIAN: JOSUE STEWART DO REASON: chest pain PROCEDURE: PORTABLE CHEST 1V INDICATION: Reason: chest pain / Spl. Instructions: / History: COMPARISON: July 27, 2020 FINDINGS: Single view of chest obtained. Nodular opacity within the right lung. Postoperative changes to the right chest. Cardiac silhouette is unremarkable. Degenerative changes of spine IMPRESSION: * Nodular opacity within the right lung could be infectious or inflammatory in nature or from nodular atelectasis. Would obtain a follow-up to ensure that this appropriately resolves to exclude persistent nodule. Electronically signed by: Greyson Lawson MD (08/16/2020 10:11 AM) DESKTOP- [id number] DICTATED and SIGNED BY: GREYSON LAWSON MD DATE: 08/16/20 [id number] 0 Course & Med Decision Making: Course & Med Decision Making Pertinent Labs and Imaging studies reviewed. (See chart for details) [] Dragon Disclaimer: Dragon Disclaimer: This electronic medical record was generated, in whole or in part, using a voice recognition dictation system. Departure Departure Impression: Primary Impression: Chest pain Additional Impression: Bradycardia Disposition: ADMITTED INPATIENT Admitting Physician: HIMS Condition: STABLE Referrals: JOAQUIN GONZALEZ MD (PCP) Problem Qualifiers JOSUE STEWART DO August 16, 2020 10:05
[2020-08-16 10:11] LABS: BASO # 0.1 x10^3/uL (0.0-0.2); BASO % 1 % (0-3); EOS # 0.7 x10^3/uL (0.0-0.7); EOS % 6 % (0-3); HEMATOCRIT 42.4 % (39.0-53.0); HEMOGLOBIN 14.2 g/dL (13.0-17.5); LYMPH # 4.1 x10^3/uL (1.0-4.8); LYMPH % 35 % (24-48); MEAN CORPUSCULAR HEMOGLOBIN 30 pg (25-35); MEAN CORPUSCULAR HGB CONC 34 g/dL (31-37); MEAN CORPUSCULAR VOLUME 91 fL (79-100); MONO % 9 % (0-9); NEUT # 5.7 x10^3/uL (1.8-7.7); NEUT % 50 % (31-73); PLATELET COUNT 236 x10^3/uL (140-400); RED BLOOD COUNT 4.68 x10^6/uL (4.30-5.70); RED CELL DISTRIBUTION WIDTH 14.3 % (11.5-14.5); WHITE BLOOD COUNT 11.5 x10^3/uL (4.0-11.0)
--- NOTE | 2020-08-16 10:14 | RAD ---
INDICATION: Reason: chest pain / Spl. Instructions: / History: COMPARISON: July 27, 2020 FINDINGS: Single view of chest obtained. Nodular opacity within the right lung. Postoperative changes to the right chest. Cardiac silhouette i s unremarkable. Degenerative changes of spine IMPRESSION: * Nodular opacity within the right lung could be infectious or inflammatory in nature or from nodula r atelectasis. Would obtain a follow-up to ensure that this appropriately resolves to exclude persist ent nodule. Electronically signed by: Yosef Mojica MD (08/16/2020 10:11 AM) [id number]
[2020-08-16] MEDS ORDERED: NITROGLYCERIN SUBLINGUAL 0.4 MG BOTTLE OF 25. SL PRN (10:15)
[2020-08-16] MEDS ORDERED: ASPIRIN CHEWABLE 81 MG TABLET. PO ONE (10:30)
[2020-08-16 10:34] LABS: CALCIUM 9.1 mg/dL (8.5-10.1); CREATININE 1.2 mg/dL (0.7-1.3); GFR 61.1
[2020-08-16 10:42] LABS: ALBUMIN 3.7 g/dL (3.4-5.0); ALBUMIN/GLOBULIN RATIO 1.2 (1.0-1.7); TOTAL BILIRUBIN 0.4 mg/dL (0.2-1.0); TOTAL PROTEIN 6.7 g/dL (6.4-8.2)
[2020-08-16] MEDS ORDERED: ONDANSETRON PF 4 MG/2 ML VIAL. IVP ONE (10:45)
[2020-08-16] MEDS ORDERED: MORPHINE SULFATE 4 MG/ML VIAL. IV ONE (10:45)
--- NOTE | 2020-08-16 11:01 | EKG ---
[facility] [address] [place] [address] Test Date: 2020-08-16 Test Time: 10:20:23 Pat Name: CHACORTA CASH Department: Room: Gender: M [employer]: : 1955 Requested By: JOSUE STEWART Order Number: [id number] Reading MD: Measurements Intervals [place] Rate: 39 P: 37 RI: 182 QRS: 23 QRSD: 96 T: 39 QT: 470 QTc: 379 Interpretive Statements SINUS BRADYCARDIA LEFT ATRIAL ABNORMALITY NON SPECIFIC ST DEPRESSION ABNORMAL ECG RI6.01 No previous ECG available for comparison
--- NOTE | 2020-08-16 11:31 | PDOC1 ---
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 He works [id number] and had returned home from work, ate a sandwich and at 0130 awoke with chest pain. It is a band-like distribution across his chest. Some associate shortness of breath, does not radiate, has a bit of nausea, but did not note food or drink affecting the pain. Tums did not help, rest did not help. Nothing exacerbates the pain. He did also have some lightheadness or dizziness. No fever, but some chills. He does note he just returned to work this week after a furlough and did not work hard thursday, ate some leftover food and popcorn and did have diarrhea the past 36 hours, but then had a very hard stool 5/12 in the evening. He does have a chronic cough and has been aching, but notes he has been moving heavy equipment at work on Thursday and Thursday. He completed his covid-19 vaccine in July. Reports that his partner had the same issue and was treated for pneumonia recently. No past hx of CAD, HTN, DM or HLP. He does take ASA daily. No recent falls or injury. No prior hx of covid-19 infection. Given NTG and ASA in ED without significant improvement, but morphine did help the pain. EKG #1 sinus bradycardia with a ventricular rate of 46 bpm. There is evidence of left atrial enlargement without acute ST/T wave changes that may denote ischemia. EKG #2 sinus bradycardia with a ventricular rate of 39 bpm. Left atrial abnormality is present. There is minimal ST depression in lead II present Chest radiograph with a right sided nodule CT chest with left sided nodule, right scarring, no pneumonia. Cholelithiasis noted. Labs with minimally elevated WBC, negative troponin. TSH 8. Admitted for further care. Past Medical History Infectious disease: HIV Past Surgical History Past Surgical History: Appendectomy Family History Family History: Cancer, Coronary Artery Disease Social History Smoke: No ALCOHOL: none Drugs: None Current Medications Current Medications Current Medications Aspirin (Aspirin Chewable) 324 mg 1X ONCE PO Last administered on 08/16/20at 10:27; Start 08/16/20 at 10:30; Stop 08/16/20 at 10:31; Status DC Nitroglycerin (Nitrostat) 0.4 mg PRN Q5MIN PRN SL CHEST PAIN Last administered on 08/16/20at 10:27; Start 08/16/20 at 10:15 Ondansetron HCl (Zofran) 4 mg 1X ONCE IVP Last administered on 08/16/20at 10:59; Start 08/16/20 at 10:45; Stop 08/16/20 at 10:46; Status DC Morphine Sulfate (Morphine Sulfate) 4 mg 1X ONCE IV Last administered on 08/16/20at 10:59; Start 08/16/20 at 10:45; Stop 08/16/20 at 10:46; Status DC Active Scripts Active Tessalon Perle (Benzonatate) 100 Mg Capsule 1 Cap PO TID 7 Days Cyclobenzaprine Hcl 10 Mg Tablet 1 Tab PO TID PRN Naproxen 375 Mg Tablet 1 Tab PO BID 10 Days Keflex (Cephalexin) 500 Mg Capsule 500 Mg PO QID 14 Days Butler 5-325 Tablet (Acetaminophen/Hydrocodone Bitart) 1 Each Tablet 1 Tab PO Q4HRS Reported Atovaquone 750 Mg/5 Ml Oral.susp 750 Mg PO DAILY Centrum Men's Tablet (Multivits,Ca,Min/Iron/FA/Lycop) 1 Each Tablet 1 Tab PO DAILY Aleve (Naproxen Sodium) 220 Mg Capsule 220 Mg PO BID PRN Aspir-Low (Aspirin) 81 Mg Tablet.dr 1 Tab PO DAILY Protonix (Pantoprazole Sodium) 20 Mg Tablet.dr 40 Mg PO DAILY Triumeq Tablet (Abacavir/Dolutegravir/Lamivudi) 1 Each Tablet 1 Tab PO DAILY Allergies Allergies: Coded Allergies: Sulfa (Sulfonamide Antibiotics) (Verified Allergy, Severe, Anaphylaxis, 11/12/19) ROS General: YES: Chills, Fatigue, Malaise; No: Night Sweats, Appetite, Other PSYCHOLOGICAL ROS: No: Anxiety, Behavioral Disorder, Concentration difficultie, Decreased libido, Depression, Disorientation, Hallucinations, Hostility, Irritablity, Memory difficulties, Mood Swings, Obsessive thoughts, Physical abuse, Sexual abuse, Sleep disturbances, Suicidal ideation, Other Eyes: No Blurry vision, No Decreased vision, No Double vision, No Dry eyes, No Excessive tearing, No Eye Pain, No Itchy Eyes, No Loss of vision, No Photophobia, No Scotomata, No Uses contacts, No Uses glasses, No Other HEENT: No: Heacaches, Visual Changes, Hearing change, Nasal congestion, Nasal discharge, Oral lesions, Sinus pain, Sore Throat, Epistaxis, Sneezing, Snoring, Tinnitus, Vertigo, Vocal changes, Other ALLERGY AND IMMUNOLOGY: No: Hives, Insect Bite Sensitivity, Itchy/Watery Eyes, Nasal Congestion, Post Nasal Drip, Seasonal Allergies, Other Hematological and Lymphatic: No: Bleeding Problems, Blood Clots, Blood Transfusions, Brusing, Night Sweats, Pallor, Swollen Lymph Nodes, Other ENDOCRINE: No: Breast Changes, Galactorrhea, Hair Pattern Changes, Hot Flashes, Malaise/lethargy, Mood Swings, Palpitations, Polydipsia/polyuria, Skin Changes, Temperature Intolerance, Unexpected Weight Changes, Other Breast: No New/Changing Breast Lumps, No Nipple changes, No Nipple discharge, No Other Respiratory: No: Cough, Hemoptysis, Orthopnea, Pleuritic Pain, Shortness of breath, SOB with excertion, Sputum Changes, Stridor, Tachypnea, Wheezing, Other Cardiovascular: yes Chest Pain; No Palpitations, No Orthopnea, No Paroxysmal Noc. Dyspnea, No Edema, No Lt Headedness, No Other Gastrointestinal: Yes Nausea, Yes Diarrhea; No Vomiting, No Abdominal Pain, No Constipation, No Melena, No Hematochezia, No Other Genitourinary: No Dysuria, No Frequency, No Incontinence, No Hematuria, No Retention, No Discharge, No Urgency, No Pain, No Flank Pain, No Other, No , No , No , No , No , No , No Musculoskeletal: No Gait Disturbance, No Joint Pain, No Joint Stiffness, No Crista nt Swelling, No Muscle Pain, No Muscular Weakness, No Pain In:, No Swelling In:, No Other Neurological: No Behavorial Changes, No Bowel/Bladder ControlChng, No Confusion, No Dizziness, No Gait Disturbance, No Headaches, No Impaired Co ord/balance, No Memory Loss, No Numbness/Tingling, No Seizures, No Speech Problems, No Tremors, No Visual Changes, No Weakness, No Other Skin: No Dry Skin, No Eczema, No Hair Changes, No Lumps, No Mole Changes, No Mottling, No Nail Changes, No Pruritus, No Rash, No Skin Lesion Changes, No Other, No Acne Physical Exam General: Alert, Oriented X3, Cooperative, mild distress HEENT: Atraumatic, PERRLA, EOMI, Mucous membr. moist/pink Lungs: Clear to auscultation, Normal air movement Heart: S1S2, RRR, no thrills, no rubs, no gallops, no murmurs Abdomen: Normal bowel sounds, Soft, No tenderness, No hepatosplenomegaly, No ma sses Rectal Exam: not examined Extremities: No clubbing, No cyanosis, No edema, Normal pulses, No tenderness/swelling Skin: No rashes, No breakdown, No significant lesion Neuro: Normal gait, Normal speech, Strength at 5/5 X4 ext, Normal tone, Sensation intact, Cranial nerves 3-12 NL, Reflexes 2+ Psych/Mental Status: Mental status NL, Mood NL Vitals Vitals Vital Signs Date Time Temp Pulse Resp B/P (MAP) Pulse Ox O2 Delivery O2 Flow Rate FiO2 08/16/20 10:59 18 Room Air 08/16/20 10:35 45 96 08/16/20 09:42 98.6 98.6 Labs Labs Laboratory Tests Test 08/16/20 09:50 White Blood Count 11.5 x10^3/uL (4.0-11.0) Red Blood Count 4.68 x10^6/uL (4.30-5.70) Hemoglobin 14.2 g/dL (13.0-17.5) Hematocrit 42.4 % (39.0-53.0) Mean Corpuscular Volume 91 fL (79-100) Mean Corpuscular Hemoglobin 30 pg (25-35) Mean Corpuscular Hemoglobin Concent 34 g/dL (31-37) Red Cell Distribution Width 14.3 % (11.5-14.5) Platelet Count 236 x10^3/uL (140-400) Neutrophils (%) (Auto) 50 % (31-73) Lymphocytes (%) (Auto) 35 % (24-48) Monocytes (%) (Auto) 9 % (0-9) Eosinophils (%) (Auto) 6 % (0-3) Basophils (%) (Auto) 1 % (0-3) Neutrophils # (Auto) 5.7 x10^3/uL (1.8-7.7) Lymphocytes # (Auto) 4.1 x10^3/uL (1.0-4.8) Monocytes # (Auto) 1.0 x10^3/uL (0.0-1.1) Eosinophils # (Auto) 0.7 x10^3/uL (0.0-0.7) Basophils # (Auto) 0.1 x10^3/uL (0.0-0.2) Sodium Level 141 mmol/L (136-145) Potassium Level 4.0 mmol/L (3.5-5.1) Chloride Level 105 mmol/L (98-107) Carbon Dioxide Level 25 mmol/L (21-32) Anion Gap 11 (6-14) Blood Urea Nitrogen 17 mg/dL (8-26) Creatinine 1.2 mg/dL (0.7-1.3) Estimated GFR (Cockcroft-Gault) 61.1 BUN/Creatinine Ratio 14 (6-20) Glucose Level 132 mg/dL (70-99) Calcium Level 9.1 mg/dL (8.5-10.1) Total Bilirubin 0.4 mg/dL (0.2-1.0) Aspartate Amino Transf (AST/SGOT) 31 U/L (15-37) Alanine Aminotransferase (ALT/SGPT) 34 U/L (16-63) Alkaline Phosphatase 113 U/L (46-116) Troponin I Quantitative < 0.017 ng/mL (0.000-0.055) PS-Pfi-Z-Type Natriuretic Peptide 206 pg/mL (0-124) Total Protein 6.7 g/dL (6.4-8.2) Albumin 3.7 g/dL (3.4-5.0) Albumin/Globulin Ratio 1.2 (1.0-1.7) Lipase 97 U/L (73-393) Laboratory Tests Test 08/16/20 09:50 White Blood Count 11.5 x10^3/uL (4.0-11.0) Red Blood Count 4.68 x10^6/uL (4.30-5.70) Hemoglobin 14.2 g/dL (13.0-17.5) Hematocrit 42.4 % (39.0-53.0) Mean Corpuscular Volume 91 fL (79-100) Mean Corpuscular Hemoglobin 30 pg (25-35) Mean Corpuscular Hemoglobin Concent 34 g/dL (31-37) Red Cell Distribution Width 14.3 % (11.5-14.5) Platelet Count 236 x10^3/uL (140-400) Neutrophils (%) (Auto) 50 % (31-73) Lymphocytes (%) (Auto) 35 % (24-48) Monocytes (%) (Auto) 9 % (0-9) Eosinophils (%) (Auto) 6 % (0-3) Basophils (%) (Auto) 1 % (0-3) Neutrophils # (Auto) 5.7 x10^3/uL (1.8-7.7) Lymphocytes # (Auto) 4.1 x10^3/uL (1.0-4.8) Monocytes # (Auto) 1.0 x10^3/uL (0.0-1.1) Eosinophils # (Auto) 0.7 x10^3/uL (0.0-0.7) Basophils # (Auto) 0.1 x10^3/uL (0.0-0.2) Sodium Level 141 mmol/L (136-145) Potassium Level 4.0 mmol/L (3.5-5.1) Chloride Level 105 mmol/L (98-107) Carbon Dioxide Level 25 mmol/L (21-32) Anion Gap 11 (6-14) Blood Urea Nitrogen 17 mg/dL (8-26) Creatinine 1.2 mg/dL (0.7-1.3) Estimated GFR (Cockcroft-Gault) 61.1 BUN/Creatinine Ratio 14 (6-20) Glucose Level 132 mg/dL (70-99) Calcium Level 9.1 mg/dL (8.5-10.1) Total Bilirubin 0.4 mg/dL (0.2-1.0) Aspartate Amino Transf (AST/SGOT) 31 U/L (15-37) Alanine Aminotransferase (ALT/SGPT) 34 U/L (16-63) Alkaline Phosphatase 113 U/L (46-116) Troponin I Quantitative < 0.017 ng/mL (0.000-0.055) VW-Teg-B-Type Natriuretic Peptide 206 pg/mL (0-124) Total Protein 6.7 g/dL (6.4-8.2) Albumin 3.7 g/dL (3.4-5.0) Albumin/Globulin Ratio 1.2 (1.0-1.7) Lipase 97 U/L (73-393) Images Images Chest radiograph: Single view of chest obtained. Nodular opacity within the right lung. Postoperative changes to the right chest. Cardiac silhouette is unremarkable. Degenerative changes of spine IMPRESSION: * Nodular opacity within the right lung could be infectious or inflammatory in nature or from nodular atelectasis. Would obtain a follow-up to ensure that this appropriately resolves to exclude persistent nodule. CT chest: The visualized thyroid gland grossly appears unremarkable. Central airways are patent. The caliber of the aorta grossly appears unremarkable. Mild coronary artery calcifications. No radiologically significant mediastinal lymphadenopathy. Mild bilateral lung emphysematous changes. Linear atelectasis or scarring right lower lobe of the lung. 4 mm nodule left upper lobe of the lung. The visualized noncontrasted liver, spleen, adrenals grossly appears unremarkable. Gallstones identified within the proximal gallbladder. Mild degenerative changes thoracic spine. IMPRESSION: 1. 4 mm nodule left upper lobe of the lung. Follow-up per Kelly significant follow-up CT in 6-12 months. 2.Linear atelectasis or scarring right lower lobe of the lung. Mild bilateral lung emphysematous changes. 3. Cholelithiasis. VTE Prophylaxis Ordered VTE Prophylaxis Devices: No VTE Pharmacological Prophylaxi: Yes Assessment/Plan Assessment/Plan A/P: Chest pain - moderate high risk for ACS given HIV and age. Telemetry, ASA, NTG. Cardiology consulted given new onset bradycardia HIV - well managed outpatient with nondetectable viral load and normal CD4 count per him. 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 He is planning on starting 5-FU therapy outpatient with dermatology. 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 Sinus bradycardia - cardiology consulted GERD - with esophageal strictures, on PPI, has good outpatient f/u Emphysematous changes on CXR and CT - likely this may be a COPD exacerbation, will give nebs, may need steroids Elevated TSH - possibly sick euthyroid given his recent GI illness. Given TSH < 10 there is no immediate indication for thyroid replacement therapy given lack of chronic symptoms. Will confirm normal suspected thyroid function by checking T4 and T3 FEN - Cardiac diet PPX - ambulatory FULL CODE Dispo - Observation for chest pain, may need inpatient Justifications for Admission Other Justification DANDRE OLIVER MD August 16, 2020 11:31
[2020-08-16] MEDS ORDERED: ONDANSETRON PF 4 MG/2 ML VIAL. IV PRN (11:45)
[2020-08-16] MEDS ORDERED: MORPHINE SULFATE 4 MG/ML VIAL. IV PRN (11:45)
--- NOTE | 2020-08-16 13:46 | PDOC2 ---
RENE ZIMMER DAIRY SPECIALIST 08/16/20 1346: CARDIAC CONSULT DATE OF CONSULT Date of Consult DATE: 08/16/20 TIME: 13:16 REASON FOR CONSULT Reason for Consult: Chest pain REFERRING PHYSICIAN Referring Physician: Danii SOURCE Source: Chart review, Patient HISTORY OF PRESENT ILLNESS HISTORY OF PRESENT ILLNESS This is a 65 yo male admitted for complains of chest pain. This occurred 0130 today. He just returned from work and decided to eat some spam sandwich. 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 A little later he just was not feeling good. He felt this achiness across his chest and tried to relieve it with tums but was not working and also felt a little dizzy. No SOA and just had little nausea but no vomiting. He has been having some chills but no recorded fever. He has been having body aches. Reports that he has been having nonproductive cough. He completed his covid-19 vaccine in July. Reports that his partner had the same issue and was treated for pneumonia recently. No past hx of CAD, HTN, DM or HLP. He does take ASA daily. No recent falls or injury. No prior hx of covid-19 infection. PAST MEDICAL HISTORY Cardiovascular: No pertinent hx Pulmonary: No pertinent hx CENTRAL NERVOUS SYSTEM: Seizure GI: GERD Heme/Onc: No pertinent hx Hepatobiliary: No pertinent hx Psych: No pertinent hx Musculoskeletal: Osteoarthritis Infectious disease: HIV, Other (toxoplasmosis; condyloma and HSIL/AIN3) ENT: Allergic Rhinitis, Other (PUYALLUP) Renal/: No pertinent hx Endocrine: No pertinent hx Dermatology: Other (anogenital warts) PAST SURGICAL HISTORY Past Surgical History: Appendectomy, Arthroscopy (elbow surgery), Hernia Repair, Other (lesion removal in the lung and brain r/t to toxoplasma; perianal lesion removal) FAMILY HISTORY Family History: Coronary Artery Disease (father CABG in his 60s) SOCIAL HISTORY Smoke: Quit (18 pkyr) ALCOHOL: occassional Drugs: Marijuana Lives: with Family CURRENT MEDICATIONS CURRENT MEDICATIONS Current Medications Medications (Trade) Dose Ordered Sig/Vu Route PRN Reason Start Time Stop Time Status Last Admin Dose Admin Aspirin (Aspirin Chewable) 324 mg 1X ONCE PO 08/16/20 10:30 08/16/20 10:31 DC 08/16/20 10:27 Nitroglycerin (Nitrostat) 0.4 mg PRN Q5MIN PRN SL CHEST PAIN 08/16/20 10:15 08/16/20 10:27 Ondansetron HCl (Zofran) 4 mg 1X ONCE IVP 08/16/20 10:45 08/16/20 10:46 DC 08/16/20 10:59 Morphine Sulfate (Morphine Sulfate) 4 mg 1X ONCE IV 08/16/20 10:45 08/16/20 10:46 DC 08/16/20 10:59 ALLERGIES ALLERGIES: Coded Allergies: Sulfa (Sulfonamide Antibiotics) (Verified Allergy, Severe, Anaphylaxis, 11/12/19) ROS Review of System 14 point ROS evaluated with pertinent positives noted per HPI PHYSICAL EXAM General: Alert, Oriented X3, Cooperative, No acute distress HEENT: Atraumatic, Mucous membr. moist/pink Lungs: Other (diminished bases) Heart: Regular rate (SR/SB), Normal S1, Normal S2, No murmurs Abdomen: Soft, No tenderness Extremities: No cyanosis, No edema Skin: No breakdown, No significant lesion Neuro: Normal speech, Sensation intact Psych/Mental Status: Mental status NL, Mood NL MUSCULOSKELETAL: Osteoarthritic changes both hands VITALS/I&O VITALS/I&O: Vital Signs Date Time Temp Pulse Resp B/P (MAP) Pulse Ox O2 Delivery O2 Flow Rate FiO2 08/16/20 11:45 47 18 129/70 (89) 99 Room Air 08/16/20 09:42 98.6 98.6 LABS Lab: Laboratory Tests Test 08/16/20 09:50 White Blood Count 11.5 x10^3/uL (4.0-11.0) H Red Blood Count 4.68 x10^6/uL (4.30-5.70) Hemoglobin 14.2 g/dL (13.0-17.5) Hematocrit 42.4 % (39.0-53.0) Mean Corpuscular Volume 91 fL (79-100) Mean Corpuscular Hemoglobin 30 pg (25-35) Mean Corpuscular Hemoglobin Concent 34 g/dL (31-37) Red Cell Distribution Width 14.3 % (11.5-14.5) Platelet Count 236 x10^3/uL (140-400) Neutrophils (%) (Auto) 50 % (31-73) Lymphocytes (%) (Auto) 35 % (24-48) Monocytes (%) (Auto) 9 % (0-9) Eosinophils (%) (Auto) 6 % (0-3) H Basophils (%) (Auto) 1 % (0-3) Neutrophils # (Auto) 5.7 x10^3/uL (1.8-7.7) Lymphocytes # (Auto) 4.1 x10^3/uL (1.0-4.8) Monocytes # (Auto) 1.0 x10^3/uL (0.0-1.1) Eosinophils # (Auto) 0.7 x10^3/uL (0.0-0.7) Basophils # (Auto) 0.1 x10^3/uL (0.0-0.2) Sodium Level 141 mmol/L (136-145) Potassium Level 4.0 mmol/L (3.5-5.1) Chloride Level 105 mmol/L (98-107) Carbon Dioxide Level 25 mmol/L (21-32) Anion Gap 11 (6-14) Blood Urea Nitrogen 17 mg/dL (8-26) Creatinine 1.2 mg/dL (0.7-1.3) Estimated GFR (Cockcroft-Gault) 61.1 BUN/Creatinine Ratio 14 (6-20) Glucose Level 132 mg/dL (70-99) H Calcium Level 9.1 mg/dL (8.5-10.1) Total Bilirubin 0.4 mg/dL (0.2-1.0) Aspartate Amino Transferase (AST) 31 U/L (15-37) Alanine Aminotransferase (ALT) 34 U/L (16-63) Alkaline Phosphatase 113 U/L (46-116) Troponin I Quantitative < 0.017 ng/mL (0.000-0.055) JS-Urm-G-Type Natriuretic Peptide 206 pg/mL (0-124) H Total Protein 6.7 g/dL (6.4-8.2) Albumin 3.7 g/dL (3.4-5.0) Albumin/Globulin Ratio 1.2 (1.0-1.7) Lipase 97 U/L (73-393) Laboratory Tests 08/16/20 09:50 Laboratory Tests 08/16/20 09:50 ASSESSMENT/PLAN ASSESSMENT/PLAN 1. Chest pain: Doubt ACS, trops nml, possibly from GI. CT chest revealed cholelithiasis 2. HIV: diagnosed in 1986 3. 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 Asymptomatic SB: lowest mid40s, no pauses 6. Possible pneumonia: partner recently treated for pneumonia. Defer to PCP 7. Hx of GERD 8. Myalgia/ and reported chills 9. Hypothyroidism: New? defer to PCP Recommendations TTE, TSH, FLP, CK, procalc, trend troponin Continue home ASA and PPI Supportive care AMALIA CARVAJAL MD 08/16/202020: CARDIAC CONSULT ASSESSMENT/PLAN ASSESSMENT/PLAN Patient seen and examined. Agree with FLOOR SCRAPER's assessment and plan. CP with atypical features and most probably GI etiology WA ruled out Check 2D echo to assess LVF and rule out WMA Thank you for your consultation RENE ZIMMER APRN August 16, 2020 13:46 AMALIA CARVAJAL MD August 16, 2020 20:21
[2020-08-16 14:45] VITALS: BP 141/83
--- NOTE | 2020-08-16 15:27 | RAD ---
Examination: CT chest without contrast HISTORY: History of chest pain COMPARISON: None available Technique: Axial CT images of chest were performed without contrast. Coronal and sagittal reformats a re performed. Exposure: One or more of the following individualized dose reduction techniques were utilized for th is examination: 1. Automated exposure control 2. Adjustment of the mA and/or kV according to patien t size 3. Use of iterative reconstruction technique FINDINGS: The visualized thyroid gland grossly appears unremarkable. Central airways are patent. The caliber of the aorta grossly appears unremarkable. Mild coronary artery calcifications. No radiologically signi ficant mediastinal lymphadenopathy. Mild bilateral lung emphysematous changes. Linear atelectasis or scarring right lower lobe of the jose luis g. 4 mm nodule left upper lobe of the lung. The visualized noncontrasted liver, spleen, adrenals sam sly appears unremarkable. Gallstones identified within the proximal gallbladder. Mild degenerative ch anges thoracic spine. IMPRESSION: 1. 4 mm nodule left upper lobe of the lung. Follow-up per Kelly significant follow-up CT in 6-12 months. 2.Linear atelectasis or scarring right lower lobe of the lung. Mild bilateral lung emphysematous kirkpatrick ges. 3. Cholelithiasis. Electronically signed by: Stanton Bella MD (08/16/2020 3:25 PM) [id number]
[2020-08-16] MEDS ORDERED: CYCLOBENZAPRINE 10 MG TABLET. PO PRN (16:15)
[2020-08-16] MEDS ORDERED: KETOROLAC 15 MG/ML VIAL. IVP PRN (16:15)
[2020-08-16 19:14] VITALS: BP 122/74
[2020-08-16] MEDS: BENZONATATE 100 MG CAPSULE. PO SCH (21:37)
[2020-08-16 22:53] VITALS: BP 115/68
[2020-08-16] MEDS ORDERED: ALBUTEROL SULFATE 2.5 MG/3 ML NEBU. NEB PRN (23:00)
[2020-08-17 03:00] VITALS: BP 128/68
[2020-08-17 07:00] VITALS: BP 115/66
[2020-08-17] MEDS: IPRATRPIUM/ALBUTEROL 0.5/2.5MG 3 ML NEBU. NEB SCH ×3 (07:30→15:48)
[2020-08-17] MEDS ORDERED: PANTOPRAZOLE 40 MG TABLET.DR. PO SCH (07:30)
[2020-08-17 07:31] LABS: BASO % 0 % (0-3); EOS # 0.2 x10^3/uL (0.0-0.7); EOS % 2 % (0-3); HEMATOCRIT 41.4 % (39.0-53.0); LYMPH # 1.8 x10^3/uL (1.0-4.8); LYMPH % 15 % (24-48); MEAN CORPUSCULAR HEMOGLOBIN 31 pg (25-35); MEAN CORPUSCULAR HGB CONC 34 g/dL (31-37); MEAN CORPUSCULAR VOLUME 91 fL (79-100); MONO # 1.2 x10^3/uL (0.0-1.1); MONO % 10 % (0-9); NEUT # 8.4 x10^3/uL (1.8-7.7); NEUT % 72 % (31-73); PLATELET COUNT 180 x10^3/uL (140-400); RED BLOOD COUNT 4.54 x10^6/uL (4.30-5.70); RED CELL DISTRIBUTION WIDTH 14.1 % (11.5-14.5); WHITE BLOOD COUNT 11.7 x10^3/uL (4.0-11.0)
[2020-08-17 07:47] LABS: CALCIUM 8.6 mg/dL (8.5-10.1); CREATININE 1.1 mg/dL (0.7-1.3); GFR 67.6; POTASSIUM 3.7 mmol/L (3.5-5.1)
[2020-08-17 07:54] LABS: CHOLESTEROL/HDL RATIO 2.5
[2020-08-17] MEDS ORDERED: BUDESONIDE 0.5 MG/2 ML NEBU. NEB SCH (08:00)
--- NOTE | 2020-08-17 08:49 | PDOC ---
RENE ZIMMER COLLEGE PROFESSOR 08/17/20 0849: CARDIO Progress Notes Date and Time Date of Service 08/17/2020 Time of Evaluation 1120 Subjective Subjective: No Chest Pain, No shortness of breath, No Palpitations Vitals Vitals Vital Signs Date Time Temp Pulse Resp B/P (MAP) Pulse Ox O2 Delivery O2 Flow Rate FiO2 08/17/20 07:32 98 Room Air 08/17/20 07:00 98.8 90 16 115/66 (82) 98.8 Weight Weight [ ] Input and Output Intake and Output Intake and Output 08/17/20 07:00 Intake Total 450 ml Output Total 450 ml Balance 0 ml Intake Oral 450 ml Output Urine Total 450 ml # Voids 1 Laboratory Labs Laboratory Tests Test 08/16/20 09:50 08/16/20 13:02 08/16/20 15:35 08/16/20 16:40 White Blood Count 11.5 x10^3/uL (4.0-11.0) Red Blood Count 4.68 x10^6/uL (4.30-5.70) Hemoglobin 14.2 g/dL (13.0-17.5) Hematocrit 42.4 % (39.0-53.0) Mean Corpuscular Volume 91 fL (79-100) Mean Corpuscular Hemoglobin 30 pg (25-35) Mean Corpuscular Hemoglobin Concent 34 g/dL (31-37) Red Cell Distribution Width 14.3 % (11.5-14.5) Platelet Count 236 x10^3/uL (140-400) Neutrophils (%) (Auto) 50 % (31-73) Lymphocytes (%) (Auto) 35 % (24-48) Monocytes (%) (Auto) 9 % (0-9) Eosinophils (%) (Auto) 6 % (0-3) Basophils (%) (Auto) 1 % (0-3) Neutrophils # (Auto) 5.7 x10^3/uL (1.8-7.7) Lymphocytes # (Auto) 4.1 x10^3/uL (1.0-4.8) Monocytes # (Auto) 1.0 x10^3/uL (0.0-1.1) Eosinophils # (Auto) 0.7 x10^3/uL (0.0-0.7) Basophils # (Auto) 0.1 x10^3/uL (0.0-0.2) Sodium Level 141 mmol/L (136-145) Potassium Level 4.0 mmol/L (3.5-5.1) Chloride Level 105 mmol/L (98-107) Carbon Dioxide Level 25 mmol/L (21-32) Anion Gap 11 (6-14) Blood Urea Nitrogen 17 mg/dL (8-26) Creatinine 1.2 mg/dL (0.7-1.3) Estimated GFR (Cockcroft-Gault) 61.1 BUN/Creatinine Ratio 14 (6-20) Glucose Level 132 mg/dL (70-99) Calcium Level 9.1 mg/dL (8.5-10.1) Total Bilirubin 0.4 mg/dL (0.2-1.0) Aspartate Amino Transf (AST/SGOT) 31 U/L (15-37) Alanine Aminotransferase (ALT/SGPT) 34 U/L (16-63) Alkaline Phosphatase 113 U/L (46-116) Creatine Kinase 94 U/L (39-308) Troponin I Quantitative < 0.017 ng/mL (0.000-0.055) < 0.017 ng/mL (0.000-0.055) < 0.017 ng/mL (0.000-0.055) JE-Wuo-K-Type Natriuretic Peptide 206 pg/mL (0-124) Total Protein 6.7 g/dL (6.4-8.2) Albumin 3.7 g/dL (3.4-5.0) Albumin/Globulin Ratio 1.2 (1.0-1.7) Lipase 97 U/L (73-393) Procalcitonin < 0.10 ng/mL (0.00-0.10) Thyroid Stimulating Hormone (TSH) 8.038 uIU/mL (0.358-3.74) Free Thyroxine 1.01 ng/dL (0.76-1.46) Test 08/17/20 06:55 White Blood Count 11.7 x10^3/uL (4.0-11.0) Red Blood Count 4.54 x10^6/uL (4.30-5.70) Hemoglobin 14.0 g/dL (13.0-17.5) Hematocrit 41.4 % (39.0-53.0) Mean Corpuscular Volume 91 fL (79-100) Mean Corpuscular Hemoglobin 31 pg (25-35) Mean Corpuscular Hemoglobin Concent 34 g/dL (31-37) Red Cell Distribution Width 14.1 % (11.5-14.5) Platelet Count 180 x10^3/uL (140-400) Neutrophils (%) (Auto) 72 % (31-73) Lymphocytes (%) (Auto) 15 % (24-48) Monocytes (%) (Auto) 10 % (0-9) Eosinophils (%) (Auto) 2 % (0-3) Basophils (%) (Auto) 0 % (0-3) Neutrophils # (Auto) 8.4 x10^3/uL (1.8-7.7) Lymphocytes # (Auto) 1.8 x10^3/uL (1.0-4.8) Monocytes # (Auto) 1.2 x10^3/uL (0.0-1.1) Eosinophils # (Auto) 0.2 x10^3/uL (0.0-0.7) Basophils # (Auto) 0.0 x10^3/uL (0.0-0.2) D-Dimer (Jennifer) 0.80 ug/mlFEU (0.00-0.50) Sodium Level 139 mmol/L (136-145) Potassium Level 3.7 mmol/L (3.5-5.1) Chloride Level 104 mmol/L (98-107) Carbon Dioxide Level 24 mmol/L (21-32) Anion Gap 11 (6-14) Blood Urea Nitrogen 14 mg/dL (8-26) Creatinine 1.1 mg/dL (0.7-1.3) Estimated GFR (Cockcroft-Gault) 67.6 Glucose Level 114 mg/dL (70-99) Calcium Level 8.6 mg/dL (8.5-10.1) Troponin I Quantitative < 0.017 ng/mL (0.000-0.055) Triglycerides Level 76 mg/dL (0-150) Cholesterol Level 151 mg/dL (0-200) LDL Cholesterol, Calculated 75 mg/dL (0-100) VLDL Cholesterol, Calculated 15 mg/dL (0-40) Non-HDL Cholesterol Calculated 90 mg/dL (0-129) HDL Cholesterol 61 mg/dL (40-60) Cholesterol/HDL Ratio 2.5 Physical Exam HEENT: Neck Supple W Full Motion Chest: Symmetric LUNGS: Clear to Auscultation Heart: S1S2, RRR (SR) Abdomen: Soft N/T Extremities: No Edema, No Calf Tenderness Neurology: alert, oriented, follow commands Assessment Assessment 1. Chest pain: Doubt ACS, trops nml, possibly from GI. CT chest revealed cholelithiasis. no further discomfort 2. HIV: diagnosed in 1986 3. 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 Asymptomatic SB: lowest mid40s, no pauses. None further overnight maintating SR in the 80s 6. COPD: per PCP 7. Hx of GERD 8. Myalgia/ and reported chills 9. Hypothyroidism: New? defer to PCP Recommendations Continue home ASA and PPI Nothing further cardiac jacob as an inpt, would consider for outpt stress test if CP is recurrent, discussed with pt. Justicifation of Admission Dx: Justifications for Admission: Justification of Admission Dx: Yes Cellulitis: Cellulitis AMALIA CARVAJAL MD 08/17/20 1513: CARDIO Progress Notes Assessment Assessment Patient seen and examined. Agree with RN PEDIATRIC ICU's assessment and plan. CP with atypical features and most probably GI etiology WA ruled out 2D echo showed normal LV systolic function without any wall motion abnormalities Plan ischemic evaluation as outpatient RENE ZIMMER APRN August 17, 2020 08:49 AMALIA CARVAJAL MD August 17, 2020 15:13
[2020-08-17] MEDS: BENZONATATE 100 MG CAPSULE. PO SCH ×2 (09:00→14:00)
[2020-08-17 11:00] VITALS: BP 114/65
--- NOTE | 2020-08-17 12:36 | PDOC ---
[facility] PROGRESS NOTE Date of Service DOS: DATE: 08/17/20 TIME: 12:29 Chief Complaint Chief Complaint A/P: Chest pain - moderate high risk for ACS given HIV and age. Telemetry, ASA, NTG. Cardiology consulted given new onset bradycardia HIV - well managed outpatient with nondetectable viral load and normal CD4 count per him. 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 He is planning on starting 5-FU therapy outpatient with dermatology. 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 Sinus bradycardia - cardiology consulted GERD - with esophageal strictures, on PPI, has good outpatient f/u Emphysematous changes on CXR and CT - likely this may be a COPD exacerbation, will give nebs, may need steroids Elevated TSH - possibly sick euthyroid given his recent GI illness. Given TSH < 10 there is no immediate indication for thyroid replacement therapy given lack o f chronic symptoms. 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 He works [id number] and had returned home from work, ate a sandwich and at 0130 awoke with chest pain. It is a band-like distribution across his chest. Some associate shortness of breath, does not radiate, has a bit of nausea, but did not note food or drink affecting the pain. Tums did not help, rest did not help. Nothing exacerbates the pain. He did also have some lightheadness or dizziness. No fever, but some chills. He does note he just returned to work this week after a furlough and did not work hard thursday, ate some leftover food and popcorn and did have diarrhea the past 36 hours, but then had a very hard stool 5/12 in the evening. He does have a chronic cough and has been aching, but notes he has been moving heavy equipment at work on Thursday and Thursday. He completed his covid-19 vaccine in July. Reports that his partner had the same issue and was treated for pneumonia recently. No past hx of CAD, HTN, DM or HLP. He does take ASA daily. No recent falls or injury. No prior hx of covid-19 infection. Given NTG and ASA in ED without significant improvement, but morphine did help the pain. EKG #1 sinus bradycardia with a ventricular rate of 46 bpm. There is evidence of left atrial enlargement without acute ST/T wave changes that may denote ischemia. EKG #2 sinus bradycardia with a ventricular rate of 39 bpm. Left atrial abnormality is present. There is minimal ST depression in lead II present Chest radiograph with a right sided nodule CT chest with left sided nodule, right scarring, no pneumonia. Cholelithiasis noted. Labs with minimally elevated WBC, negative troponin. TSH 8. 08/17/2020 Patient seen and evaluated bedside, resting comfortably in bed. He denies any chest pain or shortness of breath. RI ruled out, troponins negative x3. Chest pain with atypical likely GERD. Echocardiogram currently pending at this time. Barring any abnormalities, patient will discharge home today with self-care. Greater than 30 minutes spent managing the discharge of this patient. Vitals/I&O Vitals/I&O: Vital Signs Date Time Temp Pulse Resp B/P (MAP) Pulse Ox O2 Delivery O2 Flow Rate FiO2 08/17/20 11:00 98.3 84 18 114/65 (81) 93 Room Air 98.3 I & O 08/16/20 08/16/20 08/17/20 15:00 23:00 07:00 Intake Total 450 ml 0 ml Output Total 450 ml Balance 450 ml -450 ml Physical Exam General: Alert, Oriented X3, Cooperative, No acute distress Heart: Regular rate (SR/SB), Normal S1, Normal S2, No murmurs Lungs: Clear Abdomen: Normal bowel sounds, Soft, No tenderness, No hepatosplenomegaly, No masses Extremities: No clubbing, No cyanosis, No edema, Normal pulses, No tenderness/swelling Skin: No rashes, No breakdown, No significant lesion Labs Labs: Laboratory Tests Test 08/16/20 13:02 08/16/20 15:35 08/16/20 16:40 08/17/20 06:55 Troponin I Quantitative < 0.017 ng/mL (0.000-0.055) < 0.017 ng/mL (0.000-0.055) < 0.017 ng/mL (0.000-0.055) Free Thyroxine 1.01 ng/dL (0.76-1.46) White Blood Count 11.7 x10^3/uL (4.0-11.0) Red Blood Count 4.54 x10^6/uL (4.30-5.70) Hemoglobin 14.0 g/dL (13.0-17.5) Hematocrit 41.4 % (39.0-53.0) Mean Corpuscular Volume 91 fL (79-100) Mean Corpuscular Hemoglobin 31 pg (25-35) Mean Corpuscular Hemoglobin Concent 34 g/dL (31-37) Red Cell Distribution Width 14.1 % (11.5-14.5) Platelet Count 180 x10^3/uL (140-400) Neutrophils (%) (Auto) 72 % (31-73) Lymphocytes (%) (Auto) 15 % (24-48) Monocytes (%) (Auto) 10 % (0-9) Eosinophils (%) (Auto) 2 % (0-3) Basophils (%) (Auto) 0 % (0-3) Neutrophils # (Auto) 8.4 x10^3/uL (1.8-7.7) Lymphocytes # (Auto) 1.8 x10^3/uL (1.0-4.8) Monocytes # (Auto) 1.2 x10^3/uL (0.0-1.1) Eosinophils # (Auto) 0.2 x10^3/uL (0.0-0.7) Basophils # (Auto) 0.0 x10^3/uL (0.0-0.2) D-Dimer (Jennifer) 0.80 ug/mlFEU (0.00-0.50) Sodium Level 139 mmol/L (136-145) Potassium Level 3.7 mmol/L (3.5-5.1) Chloride Level 104 mmol/L (98-107) Carbon Dioxide Level 24 mmol/L (21-32) Anion Gap 11 (6-14) Blood Urea Nitrogen 14 mg/dL (8-26) Creatinine 1.1 mg/dL (0.7-1.3) Estimated GFR (Cockcroft-Gault) 67.6 Glucose Level 114 mg/dL (70-99) Calcium Level 8.6 mg/dL (8.5-10.1) Triglycerides Level 76 mg/dL (0-150) Cholesterol Level 151 mg/dL (0-200) LDL Cholesterol, Calculated 75 mg/dL (0-100) VLDL Cholesterol, Calculated 15 mg/dL (0-40) Non-HDL Cholesterol Calculated 90 mg/dL (0-129) HDL Cholesterol 61 mg/dL (40-60) Cholesterol/HDL Ratio 2.5 Assessment and Plan Assessmemt and Plan Problems Medical Problems: (1) Bradycardia Status: Acute (2) Chest pain Status: Acute Comment Review of Relevant I have reviewed the following items edita (where applicable) has been applied. Medications: Current Medications Medications (Trade) Dose Ordered Sig/Vu Route PRN Reason Start Time Stop Time Status Last Admin Dose Admin Benzonatate (Tessalon Perle) 100 mg TID PO 08/16/20 21:00 08/16/20 21:37 Cyclobenzaprine HCl (Flexeril) 10 mg PRN TID PRN PO MUSCLE PAIN 08/16/20 16:15 08/16/20 16:34 Pantoprazole Sodium (Protonix) 40 mg DAILYAC PO 08/17/20 07:30 08/17/20 08:22 Ketorolac Tromethamine (Toradol 15mg Vial) 15 mg PRN Q6HRS PRN IVP INFLAMMATION 08/16/20 16:15 08/16/20 16:34 Albuterol/ Ipratropium (Duoneb) 3 ml RTQID NEB 08/17/20 08:00 08/17/20 07:30 Budesonide (Pulmicort) 0.5 mg RTBID NEB 08/17/20 08:00 08/17/20 07:30 Justifications for Admission Other Justification ZAIDA ARVIZU MD August 17, 2020 12:36
--- NOTE | 2020-08-17 12:40 | PDOC3 ---
Discharge Summary Visit Information Date of Admission: August 16, 2020 Date of Discharge: August 17, 2020 Final Diagnosis Problems Medical Problems: (1) Bradycardia Status: Acute (2) Chest pain Status: Acute Brief Hospital Course Allergies Allergies Coded Allergies Type Severity Reaction Last Updated Verified Sulfa (Sulfonamide Antibiotics) Allergy Severe Anaphylaxis 11/12/19 Yes Vital Signs Vital Signs Date Time Temp Pulse Resp B/P (MAP) Pulse Ox O2 Delivery O2 Flow Rate FiO2 08/17/20 11:00 98.3 84 18 114/65 (81) 93 Room Air 98.3 Lab Results Laboratory Tests Test 08/16/20 09:50 08/16/20 13:02 08/16/20 15:35 08/16/20 16:40 White Blood Count 11.5 x10^3/uL (4.0-11.0) Red Blood Count 4.68 x10^6/uL (4.30-5.70) Hemoglobin 14.2 g/dL (13.0-17.5) Hematocrit 42.4 % (39.0-53.0) Mean Corpuscular Volume 91 fL (79-100) Mean Corpuscular Hemoglobin 30 pg (25-35) Mean Corpuscular Hemoglobin Concent 34 g/dL (31-37) Red Cell Distribution Width 14.3 % (11.5-14.5) Platelet Count 236 x10^3/uL (140-400) Neutrophils (%) (Auto) 50 % (31-73) Lymphocytes (%) (Auto) 35 % (24-48) Monocytes (%) (Auto) 9 % (0-9) Eosinophils (%) (Auto) 6 % (0-3) Basophils (%) (Auto) 1 % (0-3) Neutrophils # (Auto) 5.7 x10^3/uL (1.8-7.7) Lymphocytes # (Auto) 4.1 x10^3/uL (1.0-4.8) Monocytes # (Auto) 1.0 x10^3/uL (0.0-1.1) Eosinophils # (Auto) 0.7 x10^3/uL (0.0-0.7) Basophils # (Auto) 0.1 x10^3/uL (0.0-0.2) Sodium Level 141 mmol/L (136-145) Potassium Level 4.0 mmol/L (3.5-5.1) Chloride Level 105 mmol/L (98-107) Carbon Dioxide Level 25 mmol/L (21-32) Anion Gap 11 (6-14) Blood Urea Nitrogen 17 mg/dL (8-26) Creatinine 1.2 mg/dL (0.7-1.3) Estimated GFR (Cockcroft-Gault) 61.1 BUN/Creatinine Ratio 14 (6-20) Glucose Level 132 mg/dL (70-99) Calcium Level 9.1 mg/dL (8.5-10.1) Total Bilirubin 0.4 mg/dL (0.2-1.0) Aspartate Amino Transf (AST/SGOT) 31 U/L (15-37) Alanine Aminotransferase (ALT/SGPT) 34 U/L (16-63) Alkaline Phosphatase 113 U/L (46-116) Creatine Kinase 94 U/L (39-308) Troponin I Quantitative < 0.017 ng/mL (0.000-0.055) < 0.017 ng/mL (0.000-0.055) < 0.017 ng/mL (0.000-0.055) SI-Qnd-B-Type Natriuretic Peptide 206 pg/mL (0-124) Total Protein 6.7 g/dL (6.4-8.2) Albumin 3.7 g/dL (3.4-5.0) Albumin/Globulin Ratio 1.2 (1.0-1.7) Lipase 97 U/L (73-393) Procalcitonin < 0.10 ng/mL (0.00-0.10) Thyroid Stimulating Hormone (TSH) 8.038 uIU/mL (0.358-3.74) Free Thyroxine 1.01 ng/dL (0.76-1.46) Test 08/17/20 06:55 White Blood Count 11.7 x10^3/uL (4.0-11.0) Red Blood Count 4.54 x10^6/uL (4.30-5.70) Hemoglobin 14.0 g/dL (13.0-17.5) Hematocrit 41.4 % (39.0-53.0) Mean Corpuscular Volume 91 fL (79-100) Mean Corpuscular Hemoglobin 31 pg (25-35) Mean Corpuscular Hemoglobin Concent 34 g/dL (31-37) Red Cell Distribution Width 14.1 % (11.5-14.5) Platelet Count 180 x10^3/uL (140-400) Neutrophils (%) (Auto) 72 % (31-73) Lymphocytes (%) (Auto) 15 % (24-48) Monocytes (%) (Auto) 10 % (0-9) Eosinophils (%) (Auto) 2 % (0-3) Basophils (%) (Auto) 0 % (0-3) Neutrophils # (Auto) 8.4 x10^3/uL (1.8-7.7) Lymphocytes # (Auto) 1.8 x10^3/uL (1.0-4.8) Monocytes # (Auto) 1.2 x10^3/uL (0.0-1.1) Eosinophils # (Auto) 0.2 x10^3/uL (0.0-0.7) Basophils # (Auto) 0.0 x10^3/uL (0.0-0.2) D-Dimer (Jennifer) 0.80 ug/mlFEU (0.00-0.50) Sodium Level 139 mmol/L (136-145) Potassium Level 3.7 mmol/L (3.5-5.1) Chloride Level 104 mmol/L (98-107) Carbon Dioxide Level 24 mmol/L (21-32) Anion Gap 11 (6-14) Blood Urea Nitrogen 14 mg/dL (8-26) Creatinine 1.1 mg/dL (0.7-1.3) Estimated GFR (Cockcroft-Gault) 67.6 Glucose Level 114 mg/dL (70-99) Calcium Level 8.6 mg/dL (8.5-10.1) Troponin I Quantitative < 0.017 ng/mL (0.000-0.055) Triglycerides Level 76 mg/dL (0-150) Cholesterol Level 151 mg/dL (0-200) LDL Cholesterol, Calculated 75 mg/dL (0-100) VLDL Cholesterol, Calculated 15 mg/dL (0-40) Non-HDL Cholesterol Calculated 90 mg/dL (0-129) HDL Cholesterol 61 mg/dL (40-60) Cholesterol/HDL Ratio 2.5 Laboratory Tests Test 08/16/20 13:02 08/16/20 15:35 08/16/20 16:40 08/17/20 06:55 Troponin I Quantitative < 0.017 ng/mL (0.000-0.055) < 0.017 ng/mL (0.000-0.055) < 0.017 ng/mL (0.000-0.055) Free Thyroxine 1.01 ng/dL (0.76-1.46) White Blood Count 11.7 x10^3/uL (4.0-11.0) Red Blood Count 4.54 x10^6/uL (4.30-5.70) Hemoglobin 14.0 g/dL (13.0-17.5) Hematocrit 41.4 % (39.0-53.0) Mean Corpuscular Volume 91 fL (79-100) Mean Corpuscular Hemoglobin 31 pg (25-35) Mean Corpuscular Hemoglobin Concent 34 g/dL (31-37) Red Cell Distribution Width 14.1 % (11.5-14.5) Platelet Count 180 x10^3/uL (140-400) Neutrophils (%) (Auto) 72 % (31-73) Lymphocytes (%) (Auto) 15 % (24-48) Monocytes (%) (Auto) 10 % (0-9) Eosinophils (%) (Auto) 2 % (0-3) Basophils (%) (Auto) 0 % (0-3) Neutrophils # (Auto) 8.4 x10^3/uL (1.8-7.7) Lymphocytes # (Auto) 1.8 x10^3/uL (1.0-4.8) Monocytes # (Auto) 1.2 x10^3/uL (0.0-1.1) Eosinophils # (Auto) 0.2 x10^3/uL (0.0-0.7) Basophils # (Auto) 0.0 x10^3/uL (0.0-0.2) D-Dimer (Jennifer) 0.80 ug/mlFEU (0.00-0.50) Sodium Level 139 mmol/L (136-145) Potassium Level 3.7 mmol/L (3.5-5.1) Chloride Level 104 mmol/L (98-107) Carbon Dioxide Level 24 mmol/L (21-32) Anion Gap 11 (6-14) Blood Urea Nitrogen 14 mg/dL (8-26) Creatinine 1.1 mg/dL (0.7-1.3) Estimated GFR (Cockcroft-Gault) 67.6 Glucose Level 114 mg/dL (70-99) Calcium Level 8.6 mg/dL (8.5-10.1) Triglycerides Level 76 mg/dL (0-150) Cholesterol Level 151 mg/dL (0-200) LDL Cholesterol, Calculated 75 mg/dL (0-100) VLDL Cholesterol, Calculated 15 mg/dL (0-40) Non-HDL Cholesterol Calculated 90 mg/dL (0-129) HDL Cholesterol 61 mg/dL (40-60) Cholesterol/HDL Ratio 2.5 Brief Hospital Course Mr. Mcclure is a 65 old male who presented with chest pain. Troponins were trended and negative x3. Consultations with cardiology. Myocardial infarction has been ruled out; symptoms likely GI in etiology. Echocardiogram was obtained that showed normal left ventricular systolic function with ejection fraction 50 to 55%; ascending aorta is mildly dilated at 3.8 cm. He was stable to discharge home with self-care and continue aspirin and PPI. Discharge Information Condition at Discharge: Improved Disposition/Orders: D/C to Home Scheduled Abacavir/Dolutegravir/Lamivudi (Triumeq Tablet) 1 Each Tablet, 1 TAB PO DAILY for HIV, (Reported) Entered as Reported by: MORELIA PATEL on 09/22/181420 Last Action: Reviewed on 08/16/201947 by REGIS THOMPSON Aspirin (Aspir-Low) 81 Mg Tablet.dr, 1 TAB PO DAILY for HEART, #30 Ref 3 (Reported) Entered as Reported by: MORELIA PATEL on 09/22/181421 Last Action: Reviewed on 08/16/201947 by REGIS THOMPSON Atovaquone (Atovaquone) 750 Mg/5 Ml Oral.susp, 750 MG PO DAILY for IMMUNE , (Reported) Entered as Reported by: MORELIA PATEL on 09/22/181425 Last Action: Reviewed on 08/16/201947 by REGIS THOMPSON Benzonatate (Tessalon Perle) 100 Mg Capsule, 1 CAP PO TID for cough for 7 Days, #21 Prescribed by: JOSUE STEWART DO on 07/27/20 1519 Last Action: Reviewed on 08/16/201947 by REGIS THOMPSON Cephalexin (Keflex) 500 Mg Capsule, 500 MG PO QID for elbow infection for 14 Days, #56 Prescribed by: WILLOW DUMONT on 11/14/19 1201 Hydrocodone/Apap 5-325 ([place] 5-325 Tablet) 1 Each Tablet, 1 TAB PO Q4HRS for Pain, #20 Prescribed by: WILLOW DUMONT on 11/14/19 1156 Multivits,Ca,Min/Iron/FA/Lycop (Centrum Men's Tablet) 1 Each Tablet, 1 TAB PO DAILY for VITAMIN, (Reported) Entered as Reported by: MORELIA PATEL on 09/22/181422 Last Action: Reviewed on 08/16/201947 by REGIS THOMPSON Naproxen (Naproxen) 375 Mg Tablet, 1 TAB PO BID for 10 Days, #20 Ref 0 Prescribed by: AILYN FOWLER APRN on 01/08/201932 Pantoprazole Sodium (Protonix) 20 Mg Tablet.dr, 40 MG PO DAILY for HEARTBURN, (Reported) Entered as Reported by: MORELIA PATEL on 09/22/181421 Last Action: Reviewed on 08/16/201947 by REGIS THOMPSON Scheduled PRN Cyclobenzaprine Hcl (Cyclobenzaprine Hcl) 10 Mg Tablet, 1 TAB PO TID PRN for PAIN, #30 Ref 0 Prescribed by: AILYN FOWLER APRN on 01/08/201932 Last Action: Reviewed on 08/16/201947 by REGIS THOMPSON Naproxen Sodium (Aleve) 220 Mg Capsule, 220 MG PO BID PRN for PAIN, (Reported) Entered as Reported by: MORELIA PATEL on 09/22/181422 Last Action: Reviewed on 08/16/201947 by REGIS THOMPSON Justicifation of Admission Dx: Justifications for Admission: Justification of Admission Dx: Yes Cellulitis: Cellulitis ZAIDA ARVIZU MD August 17, 2020 12:40
--- NOTE | 2020-08-17 12:43 | NUR ---
SS following for discharge planning. SS reviewed pt chart and discussed with pt RN. Pt is from home with spouse and is currently on room air. Cardiology consulted. ECHO ordered. SS will continue to follow for discharge planning.
--- NOTE | 2020-08-17 14:46 | CARD ---
MR#: [id number] Date of Study: 08/17/2020 Ordering Physician: RENE ZIMMER, Referring Physician: RENE ZIMMER, Tech: Shannan Wolffsilvestrecarol ann, [facility] APPROVED REPORT EXAM: Two-dimensional and M-mode echocardiogram with Doppler and color Doppler. Other Information Quality : AverageHR: 97bpm INDICATION Chest Pain Bradycardia 2D DIMENSIONS RVDd4.0 (2.9-3.5cm)Left Atrium(2D)3.8 (1.6-4.0cm) IVSd1.0 (0.7-1.1cm)Aortic Root(2D)3.7 (2.0-3.7cm) LVDd4.7 (3.9-5.9cm)LVOT Diameter2.1 (1.8-2.4cm) PWd1.1 (0.7-1.1cm)LVDs3.3 (2.5-4.0cm) FS (%) 29.0 %SV56.0 ml LVEF(%)55.7 (>50%) Aortic Valve AoV Peak Jose A.130.3cm/sAoV VTI20.3cm AO Peak GR.6.8mmHgLVOT Peak Jose A.83.3cm/s LVOT VTI 14.84cmAO Mean GR.4mmHg CLAY (VMAX)1.86mq5TOD (VTI)2.65cm2 Mitral Valve MV E Ifrokuvr18.4cm/sMV A Juobhxov534.6cm/s E/A Ratio0.7 TDI E/Lateral E'10.0E/Medial E'12.2 Pulmonary Valve PV Peak Lmyfjnos64.6cm/sPV Peak Grad.3mmHg Pulmonary Vein S1 Vbjlhsgo00.0cm/sD2 Deppmyrw42.4cm/s PVa [id number] LEFT VENTRICLE The left ventricle is normal size. There is mild concentric left ventricular hypertrophy. The left ve ntricular systolic function is normal and the ejection fraction is within normal range. The Ejection Fraction is 50-55%. There is normal LV segmental wall motion. Transmitral Doppler flow pattern is Gra de I-abnormal relaxation pattern. RIGHT VENTRICLE The right ventricle is borderline dilated. There is normal right ventricular wall thickness. The righ t ventricular systolic function is normal. ATRIA The left atrium size is normal. The right atrium size is normal. The interatrial septum is intact wit h no evidence for an atrial septal defect or patent foramen ovale as noted on 2-D or Doppler imaging. AORTIC VALVE The aortic valve is normal in structure and function. Doppler and Color Flow revealed no significant aortic regurgitation. There is no significant aortic valvular stenosis. Calculated aortic valve area is 2.64 cm2 with maximum pressure gradient of 8 mmHg and mean pressure gradient of 5 mmHg. MITRAL VALVE The mitral valve is normal in structure and function. There is no evidence of mitral valve prolapse. There is no mitral valve stenosis. Doppler and Color-flow revealed trace mitral regurgitation. TRICUSPID VALVE The tricuspid valve is normal in structure and function. Doppler and Color Flow revealed no tricuspid valve regurgitation noted. There is no tricuspid valve stenosis. PULMONIC VALVE The pulmonic valve is not well visualized. Doppler and Color Flow revealed no pulmonic valvular regur gitation. There is no pulmonic valvular stenosis. GREAT VESSELS The aortic root is mildly enlarged. The ascending aorta is mildly dilated at 3.8 cm. The IVC is luna l in size and collapses >50% with inspiration. PERICARDIAL EFFUSION There is no evidence of significant pericardial effusion. Critical Notification Critical Value: No <Conclusion> The left ventricular systolic function is normal and the ejection fraction is within normal range. Th e Ejection Fraction is 50-55%. There is normal LV segmental wall motion. The ascending aorta is mildly dilated at 3.8 cm. Signed by : Rusty Morrell, Electronically Approved : 08/17/2020 14:45:59
[2020-08-17 15:00] VITALS: BP 124/72
--- NOTE | 2020-08-17 18:00 | NUR ---
Discharge Note: [facility] Discharge instructions and discharge home medications reviewed with Patient and a copy given. All questions have been answered and understanding verbalized. The following instructions and handouts were given: Chest pain IV discontinued, no complications. Patient discharged to home with self care via spouse's vehicle
== END 2020-08-17 18:00 | disposition home or self-care (01) ==
LOC: ER 09:39 → ED HOLD 11:15 → 2 NORTH 14:55
PROVIDERS: ADMIT Internal Medicine; ATTEND Internal Medicine
DX: R07.89 Other chest pain (principal); D04.9 Carcinoma in situ of skin, unspecified; I25.10 Atherosclerotic heart disease of native coronary artery without angina pectoris; R00.1 Bradycardia, unspecified; M19.90 Unspecified osteoarthritis, unspecified site; R56.9 Unspecified convulsions; K21.9 Gastro-esophageal reflux disease without esophagitis; E03.9 Hypothyroidism, unspecified; I51.7 Cardiomegaly; J44.9 Chronic obstructive pulmonary disease, unspecified; K22.2 Esophageal obstruction; L03.90 Cellulitis, unspecified; K80.20 Calculus of gallbladder without cholecystitis without obstruction; Z82.49 Family history of ischemic heart disease and other diseases of the circulatory system; Z86.007 Personal history of in-situ neoplasm of skin; Z21 Asymptomatic human immunodeficiency virus [HIV] infection status; Z90.49 Acquired absence of other specified parts of digestive tract; Z79.82 Long term (current) use of aspirin; Z79.899 Other long term (current) drug therapy; Z98.890 Other specified postprocedural states; Z87.891 Personal history of nicotine dependence
CPT/HCPCS: 36415; 71045; 71250; 80048; 80053; 80061; 82550; 83690; 83880; 84145; 84439; 84443; 84480; 84484; 85025; 85379; 93005; 93306; 94640; 96374; 96375; 99285; G0378; J1885; J2270; J2405; J7626; G0379